=== PATIENT | female | born 1960 | race Caucasian/White ===

== ENCOUNTER 2017-09-27 10:25 | Emergency (ER) | payer SELFPAY ==
[2017-09-27] MEDS ORDERED: HYDROCODONE/ACETAMINOPHEN 5-325 MG TABLET PO ONE (13:57)
[2017-09-27] MEDS ORDERED: IBUPROFEN 800 MG TABLET PO ONE (13:57)
--- NOTE | 2017-09-27 13:57 | ER Document Report ---
ED General - General Chief Complaint: Urinary Problem Stated Complaint: VAGINAL BLEEDING Time Seen by Provider: 09/27/17 13:45 Notes: This is a 57-year-old female patient presents emergency department with hematuria. States that she has a history of uterine fibroids. Every now and then she notices some blood in her urine. Also complains of pain in her left trapezius and left chest. Radiates to her back at times. Patient states that it is very tender to palpation in the neck muscles and shoulder as well as chest muscles. States that the symptoms have been present for "several months" . States that she sleeps in the bathtub because it helps. When she lays down on the left shoulder it hurts. 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 IN LAST 30 DAYS: No - HPI Onset/Duration: Gradual, Persistent Quality of pain: Achy Severity: Moderate Pain Level: 3 Associated symptoms: None - Related Data Allergies/Adverse Reactions: strawberry [[place]] Allergy (Verified 09/27/17 10:35) Past Medical History - General Information source: Patient - Social History Smoking Status: Former Smoker Cigarette use (# per day): Yes Smoking Education Provided: No Frequency of alcohol use: None Drug Abuse: None Lives with: Family Family History: Reviewed & Not Pertinent - Past Medical History Cardiac Medical History: Reports: Hx Hypertension Neurological Medical History: Reports: Hx Migraine Musculoskeltal Medical History: Reports Hx Arthritis Psychiatric Medical History: Reports: Hx Depression Traumatic Medical History: Reports: Hx Fractures - Fingers and toes Past Surgical History: Reports: Hx Orthopedic Surgery - "neck surgery", Hx Tubal Ligation - Immunizations Immunizations up to date: Yes Hx Diphtheria, Pertussis, Tetanus Vaccination: No Review of Systems - Review of Systems Constitutional: denies: Chills, Diaphoresis, Fever, Malaise, Weakness EENT: denies: Eye discharge, Blurred vision, Tearing, Double vision, Nose congestion, Nose discharge, Mouth swelling Cardiovascular: denies: Chest pain, Palpitations, Heart racing, Dyspnea, Syncope , Dizziness, Lightheaded Gastrointestinal: denies: Abdominal pain, Diarrhea, Nausea, Constipation, Black stools Genitourinary: Hematuria. denies: Burning, Dysuria, Discharge, Incontinence Female Genitourinary: Vaginal bleeding. denies: Vaginal discharge, Vaginal odor , Painful intercourse Musculoskeletal: Back pain, Joint pain, Muscle pain, Muscle stiffness Hematologic/Lymphatic: denies: Anemia, Blood clots, Easy bleeding, Easy bruising Neurological/Psychological: denies: Depression, Anxiety, Hallucinations Physical Exam - Vital signs Vitals: Temp Pulse Resp BP Pulse Ox 97.6 F 84 20 201/99 H 95 09/27/17 10:40 09/27/17 10:40 09/27/17 10:40 09/27/17 10:40 09/27/17 10:40 Interpretation: Normal - General General appearance: Appears well, Alert - HEENT Head: Normocephalic, Atraumatic Eyes: Normal Pupils: PERRL - Respiratory Respiratory status: No respiratory distress Chest status: Nontender Breath sounds: Normal Chest palpation: Normal - Cardiovascular Rhythm: Regular - She has clearly reproducible left anterior and lateral chest wall pain with light touch. Over exaggerated. Heart sounds: Normal auscultation Murmur: No - Abdominal Inspection: Normal Distension: No distension Bowel sounds: Normal Tenderness: Nontender Organomegaly: No organomegaly - Back Back: Normal, Nontender - Extremities General upper extremity: Normal inspection, Normal color, Normal ROM, Normal temperature, Other - Patient has tenderness to palpation in the left trapezius muscle as well as left scapular muscles. There is no obvious lymphadenopathy in the left axilla. General lower extremity: Normal inspection, Nontender, Normal color, Normal ROM , Normal temperature, Normal weight bearing. No: Luda's sign - Neurological Neuro grossly intact: Yes Cognition: Normal Orientation: AAOx4 [place] Coma Scale Eye Opening: Spontaneous [place] Coma Scale Verbal: Oriented [place] Coma Scale Motor: Obeys Commands [place] Coma Scale Total: 15 Speech: Normal Motor strength normal: LUE, RUE, LLE, RLE Sensory: Normal - Psychological Associated symptoms: Normal affect, Normal mood - Skin Skin Temperature: Warm - Left lateral breast examined. No obvious breast masses. No changes to the skin noted. No obvious lymphadenopathy. Skin Moisture: Dry Skin Color: Normal Course - Re-evaluation Re-evalutation: 09/27/17 14:34 Is a well-appearing 57-year-old female in no acute distress with chronic complaints. Has a history of uterine fibroids. Will need to be followed up with [employer]. Has some left clearly reproducible musculoskeletal pain on the left scapula and left shoulder area. Do not feel this represents cardiac event. We will give her some anti-inflammatory and pain medication and recommend close follow-up. 09/27/17 14:49 Chest X-Ray 09/27/17 13:56 IMPRESSION: No acute changes - Vital Signs Vital signs: Temp Pulse Resp BP Pulse Ox 97.6 F 84 20 201/99 H 95 09/27/17 10:40 09/27/17 10:40 09/27/17 10:40 09/27/17 10:40 09/27/17 10:40 - Laboratory Laboratory results interpreted by me: 09/27/17 10:38 Urine Blood MODERATE H - EKG Interpretation by Co EKG shows normal: Sinus rhythm, Kulm, Intervals, QRS Complexes, ST-T Waves Discharge - Discharge Clinical Impression: Uterine fibroid Qualifiers: Uterine leiomyoma location: unspecified location Qualified Code(s): D25.9 - Leiomyoma of uterus, unspecified Left shoulder pain Qualifiers: Chronicity: chronic Qualified Code(s): M25.512 - Pain in left shoulder Instructions: Hematuria ([facility]), Shoulder Injury ([facility]) Prescriptions: Hydrocodone/Acetaminophen [[place] 5-325 Tablet] 1 each PO TID PRN 4 Days #12 tablet PRN Reason: Ibuprofen [Motrin 600 Mg Tablet] 600 mg PO TID 5 Days #15 tablet Referrals: [facility] [Provider Group] - Follow up in 3-5 days MARTIN SHAHID MD [ACTIVE STAFF] - Follow up in 1 week
[2017-09-27 14:31] LABS: APPEARANCE,URINE CLEAR; BILIRUBIN,URINE NEGATIVE (NEGATIVE); COLOR,URINE STRAW; GLUCOSE, URINE NEGATIVE (NEGATIVE); KETONES,URINE NEGATIVE (NEGATIVE); LEUKOCYTE ESTERASE,URINE NEGATIVE (NEGATIVE); NITRITE,URINE NEGATIVE (NEGATIVE); PROTEIN,URINE NEGATIVE (NEGATIVE); URINE SPECIFIC GRAVITY 1.006; UROBILINOGEN,URINE NEGATIVE mg/dL (<2.0)
--- NOTE | 2017-09-27 14:42 | RADIOLOGY REPORT (SQ) ---
EXAM DESCRIPTION: CHEST PA/LAT COMPLETED DATE/TIME: 09/27/2017 2:32 pm REASON FOR STUDY: CHEST PAIN COMPARISON: Two-view chest 09/02/2013, 07/30/2011 EXAM PARAMETERS: NUMBER OF VIEWS: two views TECHNIQUE: Digital Frontal and Lateral radiographic views of the chest acquired. RADIATION DOSE: NA LIMITATIONS: none FINDINGS: LUNGS AND PLEURA: No opacities, masses or pneumothorax. No pleural effusion. MEDIASTINUM AND HILAR STRUCTURES: No masses or contour abnormalities. HEART AND VASCULAR STRUCTURES: Heart normal size. No evidence for failure. BONES: No acute findings. Convex rightward upper thoracic and convex leftward lower thoracic curvatu re. HARDWARE: None in the chest. OTHER: No other significant finding. IMPRESSION: No acute changes TECHNICAL DOCUMENTATION: JOB ID: [id number] [employer]- All Rights Reserved
[2017-09-27 15:31] LABS: ABSOLUTE BASOPHILS # (AUTO) 0.1 10^3/uL (0.0-0.2); ABSOLUTE EOSINOPHILS # (AUTO) 0.2 10^3/uL (0.0-0.6); ABSOLUTE LYMPHOCYTES (AUTO) 2.8 10^3/uL (0.5-4.7); ABSOLUTE MONOCYTES (AUTO) 0.4 10^3/uL (0.1-1.4); ABSOLUTE NEUT (AUTO) 5.3 10^3/uL (1.7-8.2); BASOPHILS % (AUTO) 1.1 % (0-2); EOSINOPHILS % (AUTO) 1.8 % (0-6); HEMATOCRIT 46.8 % (36.0-47.0); HEMOGLOBIN 16.4 g/dL (12.0-15.5); LYMPHOCYTES % (AUTO) 31.9 % (13-45); MEAN CORPUSCULAR HEMOGLOBIN 31.9 pg (27.0-33.4); MEAN CORPUSCULAR HGB CONC 35.1 g/dL (32.0-36.0); MEAN CORPUSCULAR VOLUME 91 fl (80-97); PLATELET COUNT 228 10^3/uL (150-450); RED BLOOD COUNT 5.15 10^6/uL (3.72-5.28); RED CELL DISTRIBUTION WIDTH 12.8 % (11.5-14.0); SEGMENTED NEUTROPHILS % (AUTO) 60.2 % (42-78); TOTAL CELLS COUNTED % (AUTO) 100 %; WHITE BLOOD COUNT 8.9 10^3/uL (4.0-10.5)
[2017-09-27 15:43] LABS: ALANINE AMINOTRANSFERASE 40 U/L (9-52); ALBUMIN 4.4 g/dL (3.5-5.0); ALKALINE PHOSPHATASE 67 U/L (38-126); ANION GAP 7 (5-19); ASPARTATE AMINO TRANSFERASE 37 U/L (14-36); BILIRUBIN,DIRECT 0.3 mg/dL (0.0-0.4); BILIRUBIN,TOTAL 0.7 mg/dL (0.2-1.3); BLOOD UREA NITROGEN 11 mg/dL (7-20); CALCIUM 9.2 mg/dL (8.4-10.2); CARBON DIOXIDE 26 mmol/L (22-30); CHLORIDE 108 mmol/L (98-107); GLUCOSE 109 mg/dL (75-110); SALICYLATE 1.4 mg/dL (2.0-20.0); SODIUM 141.1 mmol/L (137-145); TOTAL PROTEIN 7.2 g/dL (6.3-8.2)
[2017-09-27 15:45] LABS: ACETAMINOPHEN < 10 ug/mL (10-30)
[2017-09-27 17:31] VITALS: BP 181/91
--- NOTE | 2017-09-27 19:04 | EKG REPORT ---
SEVERITY:- NORMAL ECG - SINUS RHYTHM : Confirmed by: Omero Mcmahan MD 27-Sep-2017 19:04:15
== END 2017-09-27 17:32 | disposition home or self-care (01) ==
LOC: ER 10:25
DX: D25.9 Leiomyoma of uterus, unspecified (principal); M25.512 Pain in left shoulder; R39.198 Other difficulties with micturition; R31.9 Hematuria, unspecified; Z87.891 Personal history of nicotine dependence
CPT/HCPCS: 36415; 71046; 80053; 80307; 81001; 85025; 87086; 93005; 93010; 99284

== ENCOUNTER 2018-01-20 11:35 | Emergency (ER) | payer SELFPAY ==
--- NOTE | 2018-01-20 12:03 | ER Document Report ---
ED Medical Screen (RME) - General Chief Complaint: Pain With Urination Stated Complaint: URINE PROBLEMS Time Seen by Provider: 01/20/18 11:49 Mode of Arrival: Ambulatory Information source: Patient Notes: 58-year-old female presents with complaints of hematuria. Patient notes that she has been having spotting in her urine for months has been seen multiple times here, has been unable to follow-up with specialist due to financial reasons. Today she noted large amount of blood clots Patient is noted to be hypertensive is not on any medications I have greeted and performed a rapid initial assessment of this patient. A comprehensive ED assessment and evaluation of the patient, analysis of test results and completion of the medical decision making process will be conducted by additional ED providers. PHYSICAL EXAMINATION: GENERAL: Well-appearing, well-nourished and in no acute distress. HEAD: Atraumatic, normocephalic. EYES: Pupils equal round extraocular movements intact, conjunctiva are normal. ENT: Nares patent NECK: Normal range of motion LUNGS: No respiratory distress Musculoskeletal: Normal range of motion NEUROLOGICAL: Normal speech, normal gait. PSYCH: Normal mood, normal affect. SKIN: Warm, Dry, normal turgor, no rashes or lesions noted. TRAVEL OUTSIDE OF THE [place] IN LAST 30 DAYS: No - Related Data Allergies/Adverse Reactions: strawberry [[place]] Allergy (Verified 09/27/17 10:35) Past Medical History - Social History Chew tobacco use (# tins/day): No Frequency of alcohol use: None Drug Abuse: None - Past Medical History Cardiac Medical History: Reports: Hx Hypertension Neurological Medical History: Reports: Hx Migraine Renal/ Medical History: Denies: Hx Peritoneal Dialysis Musculoskeltal Medical History: Reports Hx Arthritis Psychiatric Medical History: Reports: Hx Depression Traumatic Medical History: Reports: Hx Fractures - Fingers and toes Past Surgical History: Reports: Hx Orthopedic Surgery - "neck surgery", Hx Tubal Ligation - Immunizations Immunizations up to date: Yes Hx Diphtheria, Pertussis, Tetanus Vaccination: No Physical Exam - Vital signs Vitals: Temp Pulse Resp BP Pulse Ox 97.6 F 76 14 194/104 H 96 01/20/18 11:41 01/20/18 11:41 01/20/18 11:41 01/20/18 11:41 01/20/18 11:41 Course - Vital Signs Vital signs: Temp Pulse Resp BP Pulse Ox 97.6 F 76 14 194/104 H 96 01/20/18 11:41 01/20/18 11:41 01/20/18 11:41 01/20/18 11:41 01/20/18 11:41
--- NOTE | 2018-01-20 12:40 | RADIOLOGY REPORT (SQ) ---
EXAM DESCRIPTION: CT LTD RENAL STONE PROTOCOL ON COMPLETED DATE/TIME: 01/20/2018 12:28 pm REASON FOR STUDY: hematuria for months COMPARISON: None. TECHNIQUE: CT scan of the abdomen and pelvis performed without intravenous or oral contrast. Images reviewed with lung, soft tissue, and bone windows. Reconstructed coronal and sagittal MPR images revi ewed. All images stored on PACS. All CT scanners at this facility use dose modulation, iterative reconstruction, and/or weight based d osing when appropriate to reduce radiation dose to as low as reasonably achievable (ALARA). [facility]: Dose Right [facility]: CareDose [facility]: Dose Right [facility]: Teradose 4D [facility]: Smart US PREVENTIVE MEDICINE RADIATION DOSE: CT Rad equipment meets quality standard of care and radiation dose reduction techniq ues were employed. CTDIvol: 14.3 mGy. DLP: 771 mGy-cm.mGy. LIMITATIONS: None. FINDINGS: LOWER CHEST: No significant findings. No nodules or infiltrates. NON-CONTRASTED LIVER, SPLEEN, ADRENALS: Evaluation limited by lack of IV contrast. No identified sign ificant masses. PANCREAS: No masses. No peripancreatic inflammatory changes. GALLBLADDER: No identified stones by CT criteria. No inflammatory changes to suggest cholecystitis. RIGHT KIDNEY AND URETER: No suspicious masses. Assessment limited by lack of IV contrast. A 2 mm ca lcification is present along the right upper pole kidney, vascular calcification versus tiny stone be st shown on coronal image 45. No hydronephrosis or hydroureter. LEFT KIDNEY AND URETER: No suspicious masses. Assessment limited by lack of IV contrast. No signifi cant calcifications. No hydronephrosis or hydroureter. AORTA AND RETROPERITONEUM: No aneurysm. No retroperitoneal masses or adenopathy. BOWEL AND PERITONEAL CAVITY: No obvious masses or inflammatory changes. No free fluid. No bowel obst ruction. No free intraperitoneal air. APPENDIX: Normal. Best shown on coronal image 34 PELVIS, BLADDER, AND ABDOMINAL WALL:Enlarged fibroid uterus 14 x 12 x 10 cm in size. No free fluid. B ladder normal. BONES: Mild degenerative changes in the lower thoracic spine OTHER: No other significant finding. IMPRESSION: Tiny calcification right upper pole kidney, vascular calcification versus tiny intrarena l nonobstructive stone. Enlarged fibroid uterus COMMENT: Quality ID # [id number]: Final reports with documentation of one or more dose reduction techniques (e.g., Automated exposure control, adjustment of the mA and/or kV according to patient size, use of iterative reconstruction technique) TECHNICAL DOCUMENTATION: JOB ID: [id number] [employer]- All Rights Reserved Reading location - IP/workstation name: [email or web address]
[2018-01-20 12:49] LABS: ABSOLUTE EOSINOPHILS # (AUTO) 0.3 10^3/uL (0.0-0.6); ABSOLUTE LYMPHOCYTES (AUTO) 3.2 10^3/uL (0.5-4.7); ABSOLUTE MONOCYTES (AUTO) 0.6 10^3/uL (0.1-1.4); ABSOLUTE NEUT (AUTO) 5.7 10^3/uL (1.7-8.2); BASOPHILS % (AUTO) 0.5 % (0-2); EOSINOPHILS % (AUTO) 3.1 % (0-6); HEMATOCRIT 49.5 % (36.0-47.0); HEMOGLOBIN 17.2 g/dL (12.0-15.5); LYMPHOCYTES % (AUTO) 32.8 % (13-45); MEAN CORPUSCULAR HEMOGLOBIN 31.7 pg (27.0-33.4); MEAN CORPUSCULAR HGB CONC 34.8 g/dL (32.0-36.0); MEAN CORPUSCULAR VOLUME 91 fl (80-97); PLATELET COUNT 267 10^3/uL (150-450); RED BLOOD COUNT 5.43 10^6/uL (3.72-5.28); RED CELL DISTRIBUTION WIDTH 13.1 % (11.5-14.0); SEGMENTED NEUTROPHILS % (AUTO) 57.6 % (42-78); TOTAL CELLS COUNTED % (AUTO) 100 %; WHITE BLOOD COUNT 9.8 10^3/uL (4.0-10.5)
[2018-01-20 12:54] LABS: APPEARANCE,URINE SLIGHTLY-CLOUDY; BILIRUBIN,URINE NEGATIVE (NEGATIVE); COLOR,URINE RED; GLUCOSE, URINE NEGATIVE (NEGATIVE); KETONES,URINE NEGATIVE (NEGATIVE); LEUKOCYTE ESTERASE,URINE NEGATIVE (NEGATIVE); NITRITE,URINE NEGATIVE (NEGATIVE); PROTEIN,URINE 30 mg/dL (NEGATIVE); URINE SPECIFIC GRAVITY 1.008; UROBILINOGEN,URINE NEGATIVE mg/dL (<2.0)
[2018-01-20 13:08] LABS: ALANINE AMINOTRANSFERASE 38 U/L (9-52); ALBUMIN 4.7 g/dL (3.5-5.0); ALKALINE PHOSPHATASE 59 U/L (38-126); ANION GAP 13 (5-19); ASPARTATE AMINO TRANSFERASE 28 U/L (14-36); BILIRUBIN,DIRECT 0.3 mg/dL (0.0-0.4); BILIRUBIN,TOTAL 0.4 mg/dL (0.2-1.3); BLOOD UREA NITROGEN 12 mg/dL (7-20); CALCIUM 10.8 mg/dL (8.4-10.2); CARBON DIOXIDE 27 mmol/L (22-30); CHLORIDE 105 mmol/L (98-107); GLUCOSE 97 mg/dL (75-110); POTASSIUM 4.2 mmol/L (3.6-5.0); SODIUM 144.6 mmol/L (137-145); TOTAL PROTEIN 7.5 g/dL (6.3-8.2)
--- NOTE | 2018-01-20 15:34 | ER Document Report ---
ED GI/ - General Chief Complaint: Pain With Urination Stated Complaint: URINE PROBLEMS Time Seen by Provider: 01/20/18 11:49 Mode of Arrival: Ambulatory Notes: Patient says that she is passing blood in her urine for the past few weeks. Is become heavier today and she is passing clots. Patient says that she went through the menopause change about 6 years ago but continued to have some spotting at times throughout the 6 years. In the recent months, she is actually passing gross blood and occasionally some clots. She also notes blood on the tissue paper when she wipes after urinating. She has some lower suprapubic discomfort. Has not been noted to have any fever. She has had some sweats at times. Has had nausea but not vomiting. No diarrhea. TRAVEL OUTSIDE OF THE [place] IN LAST 30 DAYS: No - Related Data Allergies/Adverse Reactions: strawberry [[place]] Allergy (Verified 09/27/17 10:35) Past Medical History - General Information source: Patient - Social History Smoking Status: Current Every Day Smoker Chew tobacco use (# tins/day): No Frequency of alcohol use: None Drug Abuse: None Family History: Reviewed & Not Pertinent Patient has suicidal ideation: No Patient has homicidal ideation: No - Past Medical History Cardiac Medical History: Reports: Hx Hypertension - On no medications for any medical problems at this time. Neurological Medical History: Reports: Hx Migraine Endocrine Medical History: Denies: Hx Diabetes Mellitus Type 1, Hx Diabetes Mellitus Type 2 Musculoskeltal Medical History: Reports Hx Arthritis Psychiatric Medical History: Reports: Hx Depression Traumatic Medical History: Reports: Hx Fractures - Fingers and toes Past Surgical History: Reports: Hx Orthopedic Surgery - "neck surgery", Hx Tubal Ligation - Immunizations Immunizations up to date: Yes Hx Diphtheria, Pertussis, Tetanus Vaccination: No Review of Systems - Review of Systems Notes: REVIEW OF SYSTEMS: CONSTITUTIONAL : Denies fever. EENT: Denies eye, ear, nose or mouth or throat pain or other symptoms. CARDIOVASCULAR: Denies chest pain. RESPIRATORY: Denies cough, chest congestion, or shortness of breath. GASTROINTESTINAL: Denies abdominal pain, has some nausea but not vomiting. No diarrhea. GENITOURINARY: See HPI. MUSCULOSKELETAL: Denies back or neck pain. Denies joint pain or swelling. SKIN: Denies rash or skin lesions. NEUROLOGICAL: Denies LOC or altered mental status. Denies headache. Denies sensory loss or motor deficits. ALL OTHER SYSTEMS REVIEWED AND NEGATIVE. Physical Exam - Vital signs Vitals: Temp Pulse Resp BP Pulse Ox 97.6 F 76 14 194/104 H 96 01/20/18 11:41 01/20/18 11:41 01/20/18 11:41 01/20/18 11:41 01/20/18 11:41 Interpretation: Hypertensive - Notes Notes: PHYSICAL EXAMINATION: GENERAL: Well-appearing, in no acute distress. HEAD: Atraumatic, normocephalic. EYES: Pupils equal round and reactive to light, extraocular movements intact. ENT: oropharynx clear without exudates. Moist mucous membranes. NECK: Normal range of motion, supple. LUNGS: Breath sounds clear and equal bilaterally. HEART: Regular rate and rhythm without murmurs. ABDOMEN: Soft, nontender. No guarding or rebound. No masses. BACK: No tenderness throughout entire back. EXTREMITIES: Normal range of motion without pain. NEUROLOGICAL: Normal speech, normal gait. Normal sensory, motor, and reflex exams. Awake, alert, and oriented x3. Cranial nerves normal. PSYCH: Normal mood, normal affect. SKIN: Warm, dry, no rashes. - Genitourinary External exam: No: Lesions, Laceration Speculum exam: Cervix closed Vaginal bleeding: Mild - Minimal bleeding intravaginally. But there is definite blood there on the swabs. Bimanuel exam: Uterus enlarged - Moderately large firm mass in the midline and slightly to the right of midline of the pelvis. Course - Re-evaluation Re-evalutation: 01/20/18 19:49 Patient's hemoglobin is elevated and will to the patient and the need for her to stop smoking because of the unnecessary strain being applied to the patient' s heart from her elevated red cell count. Patient certainly does not need to be concerned about bleeding excessively from the fibroid. Spoke with Dr. Peralta, production manager BAG WORKER, and she said to refer the patient to her office for a follow-up Tuesday. 01/20/18 19:51 Patient's blood pressure was up so I started her on lisinopril with the advised that she follow-up - Vital Signs Vital signs: Temp Pulse Resp BP Pulse Ox 97.5 F 62 14 184/83 H 97 01/20/18 15:49 01/20/18 15:49 01/20/18 11:41 01/20/18 15:49 01/20/18 15:49 - Laboratory Result Diagrams: 01/20/18 12:05 01/20/18 12:05 Laboratory results interpreted by me: 01/20/18 01/20/18 01/20/18 12:05 12:05 12:05 RBC 5.43 H Hgb 17.2 H Hct 49.5 H Calcium 10.8 H Urine Protein 30 H Urine Blood LARGE H - Diagnostic Test Radiology reviewed: Image reviewed - Moderately large fibroid in the uterus that corresponds to the mass on my physical examination., Reports reviewed Discharge - Discharge Clinical Impression: Vaginal bleeding, Hypertension Disposition: HOME, SELF-CARE Additional Instructions: VAGINAL BLEEDING: You are having an episode of abnormal bleeding. Causes of abnormal vaginal bleeding can include miscarriage or tubal , tumors such as cancer or benign fibroids, medication effects, or hormone imbalance. Testing can eliminate unsuspected , tumors, or infection as a cause. "Dysfunctional uterine bleeding" is due to hormone imbalance, and is especially common at times when the normal cycle is disturbed -- whether by recent , use of control pills or hormones, or impending menopause. If the bleeding is innocent, most commonly a short course of hormones is given to restore the uterus to normal. Sometimes, the normal menstrual cycle corrects itself naturally. Sometimes , brief hormone therapy, or even a D&C is required. Your physician will advise you. Treatment for anemia may be required if bleeding is severe. You should rest and avoid intercourse until the bleeding is controlled. Call the doctor or return for re-examination if you feel faint, have increasing pain, or have a major increase in the amount of bleeding. FIBROIDS: Fibroids are benign growths or tumors in the uterus. They can cause enlargement of the uterus, irregular bleeding, severe bleeding with periods, and abdominal pain. Anemia may result if periods are heavy. Fibroids tend to grow until menopause, then slowly shrink. If fibroids cause severe symptoms, they can be treated surgically. Call or return if vaginal bleeding or pain becomes severe. HIGH BLOOD PRESSURE, NOT TREAT: When your blood pressure was taken today it was elevated. Today's reading was . We do not think you need to have your blood pressure treated today. Sometimes, stress or illness causes a temporary elevation of your blood pressure. We suggest that you get your blood pressure measured again during the next few days to see if this elevated blood pressure is more than a temporary abnormality. If your blood pressure is greater than 150/90 on each occasion, you must have treatment. Some simple things you can do to help are: If you have blood pressure medicine but aren't using it regularly, start taking it again. Get some aerobic exercise for at least 20 minutes on a daily basis. (See your doctor before beginning a new exercise program.) Eat a low-fat diet. Lose excess weight. Avoid salty foods and avoid adding salt to any of the foods you eat. Avoid diet pills, decongestants, "energizing" herbs, and other medicines that elevate blood pressure. If left untreated, hypertension greatly enhances your risk for developing heart disease and strokes. Please don't ignore this problem. HIGH BLOOD PRESSURE REQUIRING TREATMENT: Your blood pressure is high. This is called "hypertension." Today's reading was 194/104 (normal is less than 140/90). Your history and exam suggest that this is not a temporary problem. You need treatment of your blood pressure. If left untreated, high blood pressure greatly increases your risk of heart attack and stroke. Please don't ignore this problem. If you have blood pressure medicine but aren't using it regularly, start taking it again. Some simple things you can do to help are: Get some aerobic exercise for at least 20 minutes on a daily basis. (See your doctor before beginning any new exercise program.) Eat a low-fat diet. Lose excess weight. Avoid salty foods and avoid adding salt to any of the foods you eat. Avoid diet pills, decongestants, "energizing" herbs, and other medicines that elevate blood pressure. There are many different medicines that treat blood pressure. If your medication causes unpleasant side effects, call your doctor. There are others you can try. Treating hypertension is a life-long investment in your health. You have been given a blood pressure medication that is a combination of an VIOLETTA inhibitor and a fluid pill called hydrochlorothiazide. HYDROCHLOROTHIAZIDE: Hydrochlorothiazide is a diuretic medication. Diuretics are often called "water pills." The medicine flushes excess salt and water from the body. Diuretics are used for fluid retention (such as heart failure, cirrhosis, or lung disease) and for blood pressure control. Often hydrochlorothiazide is combined with other medicines in the same pill. Most patients prefer to take the medicine in the morning. Hydrochlorothiazide makes extra urine, which can be a problem if you take the pill at night. Diuretics make you lose potassium. Sometimes a good diet with plenty of fruit is enough to replace it. Sometimes a potassium supplement is necessary. Or, hydrochlorothiazide may be combined with medicines that prevent potassium loss. We usually recommend a blood potassium test in a few weeks. Contact your doctor if you develop extreme fatigue, muscle weakness, lethargy, confusion, or palpitations. ANGIOTENSIN CONVERTING ENZYME INHIBITOR MEDICATION: "VIOLETTA inhibitor" drugs are used to lower high blood pressure (or to reduce the "work" of the heart in patients with heart failure). These drugs block an enzyme that makes your blood vessels constrict and makes you retain salt. The result is lower blood pressure. VIOLETTA inhibitors cause few side effects. The most common side effect is a dry nagging cough. Occasionally, lightheadedness may occur while you get used to the medicine. Some patients may retain extra potassium (this is a problem if you are taking potassium supplements, potassium-containing salt substitutes, or a potassium-retaining drug such as triamterene, spironolactone, or amiloride) . If you are taking lithium, the lithium level must be rechecked after starting an VIOLETTA inhibitor. VIOLETTA inhibitors should NOT be used during . Contact the doctor or return if you develop severe lightheadedness, wheeze , weakness, palpitations or other new symptoms. FOLLOW-UP CARE: If you have been referred to a physician for follow-up care, call the physician s office for an appointment as you were instructed or within the next two days. If you experience worsening or a significant change in your symptoms (very heavy bleeding with large clots of blood, passage of tissue, more severe abdominal / pelvic pain or cramping, feeling faint or severe weakness, fever, etc.), notify the physician immediately or return to the Emergency Department at any time for re-evaluation. OBSTETRIC-GYNECOLOGIC (OB-CHROME PLATER HELPER) PHYSICIANS IN [place]: [facility] [address] [place] [address] [phone] Prescriptions: Lisinopril/Hydrochlorothiazide [Lisinopril-Hctz 10-12.5 mg Tab] 1 each PO DAILY #30 tablet Referrals: LOCALMD,NO [Primary Care Provider] - Follow up as needed CHATO PERALTA MD [ACTIVE STAFF] - Follow up in 3-5 days
[2018-01-20 15:51] VITALS: BP 184/83
== END 2018-01-20 15:55 | disposition home or self-care (01) ==
LOC: ER 11:35
DX: N93.8 Other specified abnormal uterine and vaginal bleeding (principal); I10 Essential (primary) hypertension; R31.9 Hematuria, unspecified; F17.200 Nicotine dependence, unspecified, uncomplicated; Z78.0 Asymptomatic menopausal state
CPT/HCPCS: 36415; 76380; 80053; 81001; 85025; 87086; 99284

== ENCOUNTER 2018-12-05 18:51 | Emergency (ER) | payer SELFPAY ==
--- NOTE | 2018-12-05 20:49 | ER Document Report ---
ED Medical Screen (RME) - General Chief Complaint: Vaginal Bleeding Stated Complaint: LOW BACK PAIN, ABDOMINAL PAIN Time Seen by Provider: 12/05/18 20:33 Notes: Patient presents to triage with a chief complaint of vaginal bleeding for 1 year, she does report having a history of a uterine fibroid, patient reports that she goes through about 6 depends per day due to blood clots and incontinence of urine. Patient also complains of low back pain that started today, besides incontinence of urine at times patient denies any other urinary symptoms. TRAVEL OUTSIDE OF THE [place] IN LAST 30 DAYS: No - Related Data Allergies/Adverse Reactions: strawberry [[place]] Allergy (Verified 09/27/17 10:35) Past Medical History - Social History Chew tobacco use (# tins/day): No Frequency of alcohol use: Occasional Drug Abuse: None - Past Medical History Cardiac Medical History: Reports: Hx Hypertension - On no medications for any medical problems at this time. Neurological Medical History: Reports: Hx Migraine Endocrine Medical History: Denies: Hx Diabetes Mellitus Type 1, Hx Diabetes Mellitus Type 2 Renal/ Medical History: Denies: Hx Peritoneal Dialysis Musculoskeltal Medical History: Reports Hx Arthritis Psychiatric Medical History: Reports: Hx Depression Traumatic Medical History: Reports: Hx Fractures - Fingers and toes Past Surgical History: Reports: Hx Orthopedic Surgery - "neck surgery", Hx Tubal Ligation - Immunizations Immunizations up to date: Yes Hx Diphtheria, Pertussis, Tetanus Vaccination: No Physical Exam - Vital signs Vitals: Temp Pulse Resp BP Pulse Ox 98.1 F 76 18 161/101 H 98 12/05/18 19:51 12/05/18 19:51 12/05/18 19:51 12/05/18 19:51 12/05/18 19:51 - Abdominal Inspection: Normal Distension: No distension Bowel sounds: Normal Tenderness: Tender - Tenderness noted throughout lower abdomen worse on right lower quadrant. Organomegaly: No organomegaly Course - Re-evaluation Re-evalutation: 12/05/18 20:50 I have greeted and performed a rapid initial assessment of this patient. A comprehensive ED assessment and evaluation of the patient, analysis of test results and completion of the medical decision making process will be conducted by additional ED providers. - Vital Signs Vital signs: Temp Pulse Resp BP Pulse Ox 98.1 F 76 18 161/101 H 98 12/05/18 19:51 12/05/18 19:51 12/05/18 19:51 12/05/18 19:51 12/05/18 19:51
[2018-12-05 21:43] LABS: AMORPHOUS SEDIMENT,URINE TRACE /HPF; APPEARANCE,URINE CLOUDY; BILIRUBIN,URINE NEGATIVE (NEGATIVE); COLOR,URINE YELLOW; GLUCOSE, URINE NEGATIVE (NEGATIVE); KETONES,URINE NEGATIVE (NEGATIVE); LEUKOCYTE ESTERASE,URINE NEGATIVE (NEGATIVE); NITRITE,URINE NEGATIVE (NEGATIVE); PROTEIN,URINE NEGATIVE (NEGATIVE); URINE SPECIFIC GRAVITY 1.014; UROBILINOGEN,URINE NEGATIVE mg/dL (<2.0)
[2018-12-05 21:44] LABS: ABSOLUTE EOSINOPHILS # (AUTO) 0.3 10^3/uL (0.0-0.6); ABSOLUTE MONOCYTES (AUTO) 0.6 10^3/uL (0.1-1.4); ABSOLUTE NEUT (AUTO) 4.7 10^3/uL (1.7-8.2); BASOPHILS % (AUTO) 0.3 % (0-2); EOSINOPHILS % (AUTO) 2.9 % (0-6); HEMATOCRIT 44.7 % (36.0-47.0); LYMPHOCYTES % (AUTO) 35.1 % (13-45); MEAN CORPUSCULAR HEMOGLOBIN 32.9 pg (27.0-33.4); MEAN CORPUSCULAR HGB CONC 35.8 g/dL (32.0-36.0); MEAN CORPUSCULAR VOLUME 92 fl (80-97); PLATELET COUNT 239 10^3/uL (150-450); RED BLOOD COUNT 4.87 10^6/uL (3.72-5.28); SEGMENTED NEUTROPHILS % (AUTO) 54.7 % (42-78); TOTAL CELLS COUNTED % (AUTO) 100 %; WHITE BLOOD COUNT 8.5 10^3/uL (4.0-10.5)
[2018-12-05 21:58] LABS: ALANINE AMINOTRANSFERASE 24 U/L (9-52); ALBUMIN 4.1 g/dL (3.5-5.0); ALKALINE PHOSPHATASE 59 U/L (38-126); ANION GAP 7 (5-19); ASPARTATE AMINO TRANSFERASE 20 U/L (14-36); BILIRUBIN,DIRECT 0.3 mg/dL (0.0-0.4); BILIRUBIN,TOTAL 0.4 mg/dL (0.2-1.3); BLOOD UREA NITROGEN 18 mg/dL (7-20); CALCIUM 10.5 mg/dL (8.4-10.2); CARBON DIOXIDE 27 mmol/L (22-30); CHLORIDE 106 mmol/L (98-107); GLUCOSE 121 mg/dL (75-110); POTASSIUM 4.2 mmol/L (3.6-5.0); SODIUM 140.4 mmol/L (137-145); TOTAL PROTEIN 7.1 g/dL (6.3-8.2)
--- NOTE | 2018-12-05 23:31 | RADIOLOGY REPORT (SQ) ---
EXAM DESCRIPTION: US TRANSVAGINAL COMPLETED DATE/TME: 12/05/2018 20:43 CLINICAL HISTORY: 58 years Female, heavy vaginal bleeding Comparison: 10/01/15. CT, January 20, 2018. Technique: Transvaginal. LIMITATIONS: None. FINDINGS: A 5.5 x 2.9 x 3.5 cm left ovary contains a 3.8 x 2.4 x 2.8 cm hypoechoic complex lesion/cyst. Left ovary is of normal vascularity. The 3.8 cm lesion of the left ovary does not demonstrate significant vascularity. 14 x 7 x 4 cm uterus with 12 x 11 x 11 cm posterior uterine wall fibroid with likely mass effect distorting the endometrial stripe. Right ovary is nonvisualized. No significant free fluid. IMPRESSION: 1. A 5.5 x 2.9 x 3.5 cm left ovary contains a 3.8 x 2.4 x 2.8 cm hypoechoic lesion/cyst. 2. A 14 x 7 x 4 cm fibroid uterus with distortion of the endometrial stripe. 3. Cannot exclude left ovarian or endometrial neoplasm. Advise BUNDLE PERSON surgical referral.
--- NOTE | 2018-12-06 02:04 | ER Document Report ---
ED GI/ - General Chief Complaint: Vaginal Bleeding Stated Complaint: LOW BACK PAIN, ABDOMINAL PAIN Time Seen by Provider: 12/06/18 02:03 Primary Care Provider: SHYLA HAMILTON MD [NO LOCAL MD] - Follow up as needed CHRIS STANFORD MD [Primary Care Provider] - Follow up as needed Mode of Arrival: Ambulatory Information source: Patient Notes: HISTORY OF PRESENT ILLNESS: Patient is a 58-year-old female with a past medical history of hypertension and uterine fibroid disease with dysfunctional uterine bleeding status post dilation/curettage who presents with recurrent uterine bleeding with pain and cramping in the lower pelvis. Patient reports that she has had similar symptoms ongoing for "years," reports she has been seen by multiple gynecologists and has even had a dilation with curettage with good results but now her symptoms have returned. Location: Pelvis Onset: 3 days ago Provocation: Unknown Quality: Cramping, bleeding Radiation: None Severity: Moderate Timing: Constant LMP: "I have been seen by 3 campus dean for uterine bleeding" Associated symptoms: No fevers or chills, no vaginal discharge, no injury REVIEW OF SYSTEMS: CONSTITUTIONAL : Denies fever or chills, no sweats. Denies recent illness. EENT: Denies eye, ear, throat, or mouth pain or symptoms. Denies nasal or sinus congestion. CARDIOVASCULAR: Denies chest pain. RESPIRATORY: Denies cough, cold, or chest congestion. Denies shortness of breath, difficulty breathing, or wheezing. GASTROINTESTINAL: Denies abdominal pain. Denies nausea, vomiting, or diarrhea. Denies constipation. GENITOURINARY: Denies difficulty urinating, painful urination, burning, frequency, or blood in urine. Positive for vaginal bleeding. MUSCULOSKELETAL: Denies neck or back pain or joint pain or swelling. SKIN: Denies rash or skin lesions. HEMATOLOGIC : Denies easy bruising or bleeding. LYMPHATIC: Denies swollen, enlarged glands. NEUROLOGICAL: Denies altered mental status or loss of consciousness. Denies headache. Denies weakness or paralysis or loss of use of either side. Denies problems with gait or speech. Denies sensory or motor loss. PSYCHIATRIC: Denies anxiety or stress or depression. All other systems reviewed and negative. PHYSICAL EXAMINATION: GENERAL: Well-appearing, well-nourished and in no acute distress. HEAD: Atraumatic, normocephalic. No scalp deformity, depression, or crepitance. EYES: Pupils are 3 mm and equal/round/reactive to light, extraocular movements intact, sclera anicteric, conjunctiva are normal. ENT: Nares patent bilaterally, oropharynx clear without exudates or palatal petechia. Moist mucous membranes. No tonsil hypertrophy. NECK: Normal range of motion, supple without lymphadenopathy. LUNGS: Breath sounds present, equal, and clear to auscultation bilaterally. No wheezes, rales, or rhonchi. HEART: Regular rate and rhythm without murmurs, rubs, or gallops. 2+ peripheral pulses. Normal capillary refill. ABDOMEN: Soft without distention, mild suprapubic and lower pelvis tenderness to palpation. Normoactive bowel sounds. No guarding, no rebound. No masses appreciated. BACK: Normal contour, no midline tenderness. Rectal exam deferred. PELVC: Deferred. EXTREMITIES: Normal range of motion, no pitting or edema. No cyanosis. NEUROLOGICAL: No focal neurological deficits. Moves all extremities spontaneously and on command. PSYCH: Normal mood, normal affect. No suicidal thoughts/ideations. No homicidal thoughts/ideations. No hallucinations. SKIN: Warm, dry, normal turgor, no rashes or lesions noted. ASSESSMENT AND PLAN: This patient is a 58-year-old female who presents with vaginal bleeding with cramping that is most likely related to her history of uterine fibroids. 1. Will obtain labs, urine, pelvic ultrasound, and reassess. 2. Will give IV Toradol and reassess. TRAVEL OUTSIDE OF THE [place] IN LAST 30 DAYS: No - Related Data Allergies/Adverse Reactions: strawberry [[place]] Allergy (Verified 09/27/17 10:35) Past Medical History - General Information source: Patient - Social History Smoking Status: Current Every Day Smoker Chew tobacco use (# tins/day): No Frequency of alcohol use: Occasional Drug Abuse: None Lives with: Family Family History: Reviewed & Not Pertinent Patient has suicidal ideation: No Patient has homicidal ideation: No - Past Medical History Cardiac Medical History: Reports: Hx Hypertension - On no medications for any medical problems at this time. Pulmonary Medical History: Reports: None EENT Medical History: Reports: None Neurological Medical History: Reports: Hx Migraine Endocrine Medical History: Reports: None. Denies: Hx Diabetes Mellitus Type 1, Hx Diabetes Mellitus Type 2 Renal/ Medical History: Reports: Hx Ovarian Cysts, Other - History of uterine fibroids status post dilation and curettage. Denies: Hx Peritoneal Dialysis Malignancy Medical History: Reports: None GI Medical History: Reports: None Musculoskeletal Medical History: Reports Hx Arthritis Skin Medical History: Reports None Psychiatric Medical History: Reports: Hx Depression Traumatic Medical History: Reports: Hx Fractures - Fingers and toes Infectious Medical History: Reports: None Past Surgical History: Reports: Hx Orthopedic Surgery - "neck surgery", Hx Tubal Ligation - Immunizations Immunizations up to date: Yes Hx Diphtheria, Pertussis, Tetanus Vaccination: No Physical Exam - Vital signs Vitals: Temp Pulse Resp BP Pulse Ox 98.1 F 76 18 161/101 H 98 12/05/18 19:51 12/05/18 19:51 12/05/18 19:51 12/05/18 19:51 12/05/18 19:51 Course - Re-evaluation Re-evalutation: 12/06/18 03:09 Ultrasound shows a left ovarian cyst as well as a mildly thickened or irregular endometrial stripe that could be secondary to neoplasm, recommends gynecology fo llow-up for likely biopsy. Patient reports she has already seen multiple gynecologists. She will be discharged home with return precautions and follow- up with gynecology/oncology. Patient voices both understanding and agreeing with the plan. - Vital Signs Vital signs: Temp Pulse Resp BP Pulse Ox 97.5 F 69 18 170/93 H 96 12/06/18 02:38 12/06/18 02:38 12/06/18 02:38 12/06/18 02:38 12/06/18 02:38 - Laboratory Result Diagrams: 12/05/18 21:13 12/05/18 21:13 Laboratory results interpreted by me: 12/05/18 12/05/18 12/05/18 21:13 21:13 21:13 Hgb 16.0 H Glucose 121 H Calcium 10.5 H Urine Blood SMALL H - Diagnostic Test Radiology reviewed: Image reviewed, Reports reviewed Discharge - Discharge Clinical Impression: Vaginal bleeding, Left ovarian cyst Condition: Good Disposition: HOME, SELF-CARE Instructions: Ovarian Cyst ([facility]) Additional Instructions: You have been evaluated in the Emergency Department for vaginal bleeding and abdominal pain. While here, you had an ultrasound that showed a left ovarian cyst as well as some thickening in the uterus and it is now safe to be discharged home. Please follow-up with gynecology/oncology as instructed as soon as possible for further workup. Return to the Emergency Department if you experience worsening pain, worsening bleeding, or any other concerning symptoms. Prescriptions: Hydrocodone/Acetaminophen [[place] 5-325 mg Tablet] 1 tab PO Q6HP PRN #20 tablet PRN Reason: For Pain Referrals: CHRIS STANFORD MD [Primary Care Provider] - Follow up as needed SHYLA HAMILTON MD [NO LOCAL MD] - Follow up as needed Print Language: Romansh
[2018-12-06] MEDS ORDERED: KETOROLAC TROMETHAMINE INJ/PF 30 MG/1 ML SDV IV ONE (02:20)
[2018-12-06 02:41] VITALS: BP 170/93
== END 2018-12-06 03:26 | disposition home or self-care (01) ==
LOC: ER 18:51
DX: N93.8 Other specified abnormal uterine and vaginal bleeding (principal); N83.202 Unspecified ovarian cyst, left side; M54.5 Low back pain; R10.9 Unspecified abdominal pain; F17.200 Nicotine dependence, unspecified, uncomplicated; I10 Essential (primary) hypertension; Z98.51 Tubal ligation status
CPT/HCPCS: 99284; 96374; 36415; 85025; 80053; 81001; 76830; 93976; J1885

== ENCOUNTER 2019-02-27 15:20 | Observation (INO) | payer SELFPAY ==
--- NOTE | 2019-02-27 15:35 | ER Document Report ---
ED NIH Stroke Scale - NIH Stroke Scale *: 1. NIH scale should be completed with appropriate accompanying assessment tools. *: 2. The NIH should reflect what the patient is capable of doing and should not be coached by the clinician. 1a. Level of Consciousness: 0=Alert;keenly responsive -: 1=Drowsy -: 2=Obtunded -: 3=Coma/unresponsive or reflex to noxious stimuli. 1a. Responses: 0 1b. Orientation Questions: a. What month is it? -: b. How old are you? -: 0=Answers both questions correctly. -: 1=Answers one question correctly or patient is intubated or has orotracheal trauma. -: 2=Answers neither question correctly. 1b. Responses: 0 1c. Response to commands: a. Open and close eyes? -: b. Acoustic Sensor Operator and release hand? -: Credit is given despite weakness. Demonstration of task is permitted. Substitute command if hands cannot be used. -: 0=Performs both tasks correctly -: 1=Performs one task correctly -: 2=Performs neither task correctly 1c. Responses: 0 2. Gaze: Establish eye contact and instruct patient to "Follow my finger" -: 0=Normal -: 1=Partial gaze palsy. Gaze is abnormal in one or both eyes, but where forced deviation or total gaze paresis is not present. -: 2=Forced deviation or total gaze paresis. 2. Responses: 0 3. Visual Mccarthy: Sees fingers in all four quadrants. -: 0=No visual loss. -: 1=Partial hemianopsia. -: 2=Complete hemianopsia. -: 3=Bilateral hemianopsia (including Cortical blindness) 3. Responses: 0 4. Facial Movement: Instruct patient to: -: a. Show me your teeth -: b. Raise your eyebrows -: c. Close your eyes -: d. Smile -: 0=Normal symmetrical movement -: 1=Minor paralysis (flattened nasolabial fold, asymmetry on smiling). -: 2=Partial paralysis (total or near total paralysis of lower face). -: 3=Complete paralysis of upper and lower face 4. Responses: 1 5. Motor functions (left arm): Alternate sides and extend each arm with palms down (90 degrees if sitting or 45 degrees for supine). -: 0=No drift;limb holds for full 10 seconds. -: 1=Drift; limb holds but drifts down before full 10 seconds, but does not hit bed. -: 2=Some effort against gravity; limb cannot get to or maintain position. -: 3=No effort against gravity; limb falls. -: 4=No movement. -: UN=Amputation, joint fusion, explain in comments. 5. Responses (left arm): 1 5. Motor Functions (right arm): Alternate sides and extend each arm with palms down (90 degrees if sitting or 45 degrees for supine). -: 0=No drift;limb holds for full 10 seconds. -: 1=Drift; limb holds but drifts down before full 10 seconds, but does not hit bed. -: 2=Some effort against gravity; limb cannot get to or maintain position. -: 3=No effort against gravity; limb falls. -: 4=No movement. -: UN=Amputation, joint fusion, explain in comments. 5. Responses (right arm): 0 6. Motor Functions (left leg): With patient lying supine, alternate sides and extend each leg (30 degrees always while supine). -: 0=No drift, leg holds position for full 5 seconds -: 1=Drift; leg falls before full 5 seconds but does not hit bed. -: 2=Some effort against gravity, leg falls to bed but some effort against gravity. -: 3=No effort against gravity, leg falls to bed immediately. -: 4=No movement. -: UN=Amputation, joint fusion; explain in comments. 6. Responses (left leg): 0 6. Motor Functions (right leg): With patient lying supine, alternate sides and extend each leg (30 degrees always while supine). -: 0=No drift, leg holds position for full 5 seconds -: 1=Drift; leg falls before full 5 seconds but does not hit bed. -: 2=Some effort against gravity, leg falls to bed but some effort against gravity. -: 3=No effort against gravity, leg falls to bed immediately. -: 4=No movement. -: UN=Amputation, joint fusion; explain in comments. 6. Responses (right leg): 0 7. Limb Ataxia: With eyes open instruct patient to: -: a. "Touch your finger to your nose". -: b. "Touch your heel to your gold" -: 0=Absent -: 1=Present in one limb. -: 2=Present in two limbs. -: UN=Amputation or joint fusion; explain in comments. 7. Responses: 0 8. Sensory: Test sensation using pinprick or noxious stimuli. Test as many body parts as possible. -: 0=Normal;no sensory loss -: 1=Mile to moderate sensory loss (patient feels pin prick but is less sharp on affected side). -: 2=Severe or total sensory loss. 8. Responses: 0 9. Best Language: Instruct patient to: -: a. "Describe what you see in this picture." -: b. "Name the items in this picture." -: c. "Read these sentences." -: 0=No aphasia, normal -: 1=Mild to moderate aphasia. -: 2=Severe aphasia -: 3=Mute, global aphasia, no usable speech or auditory comprehension. 9. Responses: 1 10. Articulation, Dysarthia: Instruct patient to: -: "Read these words" or "Repeat these words" -: 0=Normal -: 1=Mild to moderate; patient may slur some words but can be understood without difficulty. -: 2=Severe; patients speech so slurred as to be unintelligible in the absence of dysphasia. -: UN=Intubated or other physical barrier, explain in comments. 10. Responses: 0 11. Extinction or inattention: 0=No abnormality -: 1= Visual, tactile, auditory, spatial, or personal inattention or extinction to bilateral simulation in one or the sensory modalities. -: 2=Profound kem-inattention or kem-inattention to more than one modality; does not recognize own hand. 11. Responses: 0 Total Score: 3
--- NOTE | 2019-02-27 15:41 | ER Document Report ---
ED Medical Screen (RME) - General Chief Complaint: S/S of Possible Stroke Stated Complaint: GENERAL WEAKNESS Time Seen by Provider: 02/27/19 15:29 Primary Care Provider: CHRIS STANFORD MD [Primary Care Provider] - Follow up as needed Mode of Arrival: Ambulatory Information source: Patient TRAVEL OUTSIDE OF THE [place] IN LAST 30 DAYS: No - HPI Notes: 02/27/19 15:37 Patient is a 59 yr old female with a hx of hypertension presents to the emergency department for chief complaint of sudden onset vision changes since 0800 and started with difficulty speaking within last 30 minutes. Denies any [id number] medications. States family noticed she was not speaking clearly, needed to be evaluated. No new medications. denies any trauma. ROS: Other than noted above, the 12 point review of systems was reviewed with the patient and were negative, all pertinent findings are included in the HPI. PHYSICAL EXAMINATION: Vital signs reviewed. GENERAL: Well-appearing, well-nourished and in no acute distress. HEAD: Atraumatic, normocephalic. EYES: Pupils equal round extraocular movements intact, conjunctiva are normal. ENT: Nares patent NECK: Normal range of motion CV: Heart regular rate and rhythm LUNGS: No respiratory distress Musculoskeletal: Normal range of motion NEUROLOGICAL: Dysarthria Dysmetria on the left, strength equal bilaterally. Midline, face symmetrical, noted dysmetria left PSYCH: Normal mood, normal affect. MDM: Patient seen and examined for rapid initial assessment. Vital signs reviewed. CT of head ordered stat. A comprehensive ED assessment and evaluation of the patient, analysis of test results and completion of the medical decision making process will be conducted by additional ED providers. *Note is created using voice recognition software and may contain spelling, syntax or grammatical errors. 02/27/19 15:41 - Related Data Allergies/Adverse Reactions: strawberry [[place]] Allergy (Verified 09/27/17 10:35) Past Medical History - General Information source: Patient - Past Medical History Cardiac Medical History: Reports: Hx Hypertension - On no medications for any medical problems at this time. Neurological Medical History: Reports: Hx Migraine Endocrine Medical History: Denies: Hx Diabetes Mellitus Type 1, Hx Diabetes Mellitus Type 2 Renal/ Medical History: Reports: Hx Ovarian Cysts. Denies: Hx Peritoneal Dialysis Musculoskeltal Medical History: Reports Hx Arthritis Psychiatric Medical History: Reports: Hx Depression Traumatic Medical History: Reports: Hx Fractures - Fingers and toes Past Surgical History: Reports: Hx Orthopedic Surgery - "neck surgery", Hx Tubal Ligation - Immunizations Immunizations up to date: Yes Hx Diphtheria, Pertussis, Tetanus Vaccination: No Physical Exam - Vital signs Vitals: Temp Pulse Resp BP Pulse Ox 98.8 F 83 26 H 198/114 H 98 02/27/19 15:26 02/27/19 15:02/27/19 15:02/27/19 15:26 02/27/19 15:26 - Neurological Neuro grossly intact: Yes Cognition: Normal Orientation: AAOx4 Mcgregor Coma Scale Eye Opening: Spontaneous Mcgregor Coma Scale Verbal: Oriented Mcgregor Coma Scale Motor: Obeys Commands Mcgregor Coma Scale Total: 15 Speech: Dysarthria Cranial nerves: Normal Cerebellar coordination: Other - dysmetria on left. 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
--- NOTE | 2019-02-27 15:55 | RADIOLOGY REPORT (SQ) ---
EXAM DESCRIPTION: CT HEAD WITHOUT COMPLETED DATE/TIME: 02/27/2019 3:45 pm REASON FOR STUDY: slurred speech, vision changes COMPARISON: None. TECHNIQUE: Axial images acquired through the brain without intravenous contrast. Images reviewed wi th bone, brain and subdural windows. Additional sagittal and coronal reconstructions were generated. Images stored on PACS. All CT scanners at this facility use dose modulation, iterative reconstruction, and/or weight based d osing when appropriate to reduce radiation dose to as low as reasonably achievable (ALARA). [facility]: Dose Right [facility]: CareDose [facility]: Dose Right [facility]: Teradose 4D [facility]: Smart doxIQ RADIATION DOSE: CT Rad equipment meets quality standard of care and radiation dose reduction techniq ues were employed. CTDIvol: 53.2 mGy. DLP: 937 mGy-cm. mGy. LIMITATIONS: None. FINDINGS: VENTRICLES: Normal size and contour. CEREBRUM: No masses. No hemorrhage. No midline shift. No evidence for acute infarction. Normal gra y/white matter differentiation. No areas of low density in the white matter. CEREBELLUM: No masses. No hemorrhage. No alteration of density. No evidence for acute infarction. EXTRAAXIAL SPACES: No fluid collections. No masses. ORBITS AND GLOBE: No intra- or extraconal masses. Normal contour of globe without masses. CALVARIUM: No fracture. PARANASAL SINUSES: No fluid or mucosal thickening. SOFT TISSUES: No mass or hematoma. OTHER: No other significant finding. IMPRESSION: No CT evidence of acute stroke or hemorrhage. EVIDENCE OF ACUTE STROKE: NO. Findings reported to the emergency department by the critical findings communication system at the ti me of interpretation. COMMENT: Quality ID # [id number]: Final reports with documentation of one or more dose reduction techniques (e.g., Automated exposure control, adjustment of the mA and/or kV according to patient size, use of iterative reconstruction technique) TECHNICAL DOCUMENTATION: JOB ID: [id number] [employer]- All Rights Reserved Reading location - IP/workstation name: [email or web address]
[2019-02-27 16:05] LABS: ABSOLUTE BASOPHILS # (AUTO) 0.1 10^3/uL (0.0-0.2); ABSOLUTE EOSINOPHILS # (AUTO) 0.2 10^3/uL (0.0-0.6); ABSOLUTE LYMPHOCYTES (AUTO) 2.6 10^3/uL (0.5-4.7); ABSOLUTE MONOCYTES (AUTO) 0.6 10^3/uL (0.1-1.4); ABSOLUTE NEUT (AUTO) 3.8 10^3/uL (1.7-8.2); BASOPHILS % (AUTO) 0.7 % (0-2); EOSINOPHILS % (AUTO) 2.6 % (0-6); HEMOGLOBIN 15.7 g/dL (12.0-15.5); LYMPHOCYTES % (AUTO) 36.6 % (13-45); MEAN CORPUSCULAR HEMOGLOBIN 32.1 pg (27.0-33.4); MEAN CORPUSCULAR HGB CONC 34.9 g/dL (32.0-36.0); MEAN CORPUSCULAR VOLUME 92 fl (80-97); PLATELET COUNT 232 10^3/uL (150-450); RED CELL DISTRIBUTION WIDTH 12.9 % (11.5-14.0); SEGMENTED NEUTROPHILS % (AUTO) 52.1 % (42-78); TOTAL CELLS COUNTED % (AUTO) 100 %; WHITE BLOOD COUNT 7.2 10^3/uL (4.0-10.5)
--- NOTE | 2019-02-27 16:10 | RADIOLOGY REPORT (SQ) ---
EXAM DESCRIPTION: CHEST SINGLE VIEW COMPLETED DATE/TIME: 02/27/2019 3:45 pm REASON FOR STUDY: slurred speech, weakness COMPARISON: 09/27/2017 EXAM PARAMETERS: NUMBER OF VIEWS: One view. TECHNIQUE: Single frontal radiographic view of the chest acquired. RADIATION DOSE: NA LIMITATIONS: None. FINDINGS: LUNGS AND PLEURA: No opacities, masses or pneumothorax. No pleural effusion. MEDIASTINUM AND HILAR STRUCTURES: No masses. Contour normal. HEART AND VASCULAR STRUCTURES: Heart normal in size. Normal vasculature. BONES: No acute findings. HARDWARE: None in the chest. OTHER: No other significant finding. IMPRESSION: NO ACUTE RADIOGRAPHIC FINDING IN THE CHEST. TECHNICAL DOCUMENTATION: JOB ID: [id number] [employer]- All Rights Reserved Reading location - IP/workstation name: [email or web address]
[2019-02-27 16:24] LABS: ALANINE AMINOTRANSFERASE 31 U/L (9-52); ALBUMIN 4.5 g/dL (3.5-5.0); ALKALINE PHOSPHATASE 55 U/L (38-126); ANION GAP 8 (5-19); ASPARTATE AMINO TRANSFERASE 27 U/L (14-36); BILIRUBIN,DIRECT 0.3 mg/dL (0.0-0.4); BILIRUBIN,TOTAL 0.6 mg/dL (0.2-1.3); BLOOD UREA NITROGEN 12 mg/dL (7-20); CALCIUM 10.1 mg/dL (8.4-10.2); CARBON DIOXIDE 25 mmol/L (22-30); CHLORIDE 107 mmol/L (98-107); CREATINE KINASE 68 U/L (30-135); GLUCOSE 113 mg/dL (75-110); POTASSIUM 4.1 mmol/L (3.6-5.0); TOTAL PROTEIN 7.1 g/dL (6.3-8.2)
[2019-02-27 16:36] LABS: CREATINE KINASE MB 1.02 ng/mL (<4.55)
[2019-02-27 16:37] LABS: TROPONIN I < 0.012 ng/mL
[2019-02-27 16:43] LABS: APPEARANCE,URINE SLIGHTLY-CLOUDY; BILIRUBIN,URINE NEGATIVE (NEGATIVE); COLOR,URINE YELLOW; GLUCOSE, URINE NEGATIVE (NEGATIVE); KETONES,URINE NEGATIVE (NEGATIVE); LEUKOCYTE ESTERASE,URINE NEGATIVE (NEGATIVE); NITRITE,URINE NEGATIVE (NEGATIVE); PROTEIN,URINE NEGATIVE (NEGATIVE); URINE SPECIFIC GRAVITY 1.004; UROBILINOGEN,URINE NEGATIVE mg/dL (<2.0)
[2019-02-27 16:46] LABS: INTERNATIONAL RATION (INR) 0.93; PROTHROMBIN TIME 12.5 SEC (11.4-15.4)
[2019-02-27] MEDS ORDERED: CEPHALEXIN 500 MG CAPSULE PO ONE (18:04)
--- NOTE | 2019-02-27 18:05 | ER Document Report ---
ED General - General Chief Complaint: S/S of Possible Stroke Stated Complaint: GENERAL WEAKNESS Time Seen by Provider: 02/27/19 15:29 Mode of Arrival: Ambulatory Information source: Patient TRAVEL OUTSIDE OF THE [place] IN LAST 30 DAYS: No - HPI Notes: Patient is a 59-year-old female history of hypercholesterolemia and polycythemia who has not undergone blood removal since October of this year comes in with report that at 830 this morning she abruptly felt a generalized weakness and was near syncopal and then noted left facial numbness thereafter. She denies any chest pain or shortness of breath or abdominal pain. The patient denies any constipation or diarrhea or nausea or vomiting she reports no aphasia. The patient reports that since 830 this morning she has had some improvement in her left facial numbness but it persists. She reports a prior headache. She describes some mild photophobia and has a history of migraines, but is never had anything similar to this happened previously. - Related Data Allergies/Adverse Reactions: strawberry [[place]] Allergy (Verified 09/27/17 10:35) Past Medical History - General Information source: Patient - Social History Smoking Status: Current Every Day Smoker Chew tobacco use (# tins/day): No Frequency of alcohol use: None Drug Abuse: None Lives with: Alone Family History: Reviewed & Not Pertinent Patient has suicidal ideation: No Patient has homicidal ideation: No - Past Medical History Cardiac Medical History: Reports: Hx Hypertension - On no medications for any medical problems at this time. Neurological Medical History: Reports: Hx Migraine Endocrine Medical History: Denies: Hx Diabetes Mellitus Type 1, Hx Diabetes Mellitus Type 2 Renal/ Medical History: Reports: Hx Ovarian Cysts. Denies: Hx Peritoneal Dialysis Musculoskeletal Medical History: Reports Hx Arthritis Psychiatric Medical History: Reports: Hx Depression Traumatic Medical History: Reports: Hx Fractures - Fingers and toes Past Surgical History: Reports: Hx Orthopedic Surgery - "neck surgery", Hx Tubal Ligation - Immunizations Immunizations up to date: Yes Hx Diphtheria, Pertussis, Tetanus Vaccination: No Review of Systems - Review of Systems -: Yes All other systems reviewed and negative Physical Exam - Vital signs Vitals: Temp Pulse Resp BP Pulse Ox 98.8 F 83 26 H 198/114 H 98 02/27/19 15:26 02/27/19 15:26 02/27/19 15:26 02/27/19 15:26 02/27/19 15:26 - Notes Notes: PHYSICAL EXAMINATION: GENERAL: Well-appearing, well-nourished and in no acute distress. HEAD: Atraumatic, normocephalic. EYES: Pupils equal round and reactive to light, extraocular movements intact, conjunctiva are normal. Anterior chambers are clear. Visual vincent are intact. ENT: Nares patent, oropharynx clear without exudates. Moist mucous membranes. Very poor dentition. NECK: Normal range of motion, supple without lymphadenopathy. No gross carotid bruits. LUNGS: Breath sounds clear to auscultation bilaterally and equal. No wheezes rales or rhonchi. HEART: Regular rate and rhythm without murmurs ABDOMEN: Soft, nontender, nondistended abdomen. No guarding, no rebound. No masses appreciated. Female : deferred Musculoskeletal: Normal range of motion, no pitting or edema. No cyanosis. NEUROLOGICAL: Cranial nerves intact with the exception of subjective numbness to the left face. No facial swelling. Normal speech. gait not tested. Normal sensory, motor exams. No obvious cerebellar ataxia. Visual vincent are intact. PSYCH: Normal mood, normal affect. SKIN: Warm, Dry, normal turgor, no rashes or lesions noted. Course - Re-evaluation Re-evalutation: 02/27/19 18:56 Initial blood pressure was elevated at 198/116. Shortly thereafter the blood pressure improved and repeat blood pressure was 174/92. No grossly elevated hemoglobin that could account for the event, although history of polycythemia is concerning. Cannot exclude a hypertensive encephalopathy, Although blood pressure is improved. Symptoms would fit for a TIA in a patient that has not had no appropriate work- up and is noncompliant with her anticholesterol therapy. No evidence for acute intracranial hemorrhage. No clinical suggestion for glaucoma. No obvious cardiac arrhythmia noted. 02/27/19 18:57 02/27/19 18:58 Discussed with the hospitalist Dr. Valencia, who agreed to see the patient further and evaluate. - Vital Signs Vital signs: Temp Pulse Resp BP Pulse Ox 98.8 F 79 20 176/90 H 96 02/27/19 15:26 02/27/19 16:39 02/27/19 17:02 02/27/19 17:02 02/27/19 17:02 - Laboratory Result Diagrams: 02/27/19 15:55 02/27/19 15:55 Laboratory results interpreted by me: 02/27/19 02/27/19 15:55 15:55 Hgb 15.7 H Glucose 113 H - EKG Interpretation by Me EKG shows normal: Sinus rhythm Additional EKG results interpreted by me: 02/27/19 19:03 EKG as interp by me showed NSR rate 73, no gross evidence for acute RI or ischemia. No change from old EKG from 09/27/17. Critical Care Note - Critical Care Note Total time excluding time spent on procedures (mins): 42 Discharge - Discharge Clinical Impression: TIA (transient ischemic attack), Paresthesia, Noncompliance Hypertension Qualifiers: Hypertension type: essential hypertension Qualified Code(s): I10 - Essential (primary) hypertension Disposition: ADMITTED INPATIENT Admitting Provider: Annie (Hospitalist) Unit Admitted: Telemetry
[2019-02-27] MEDS ORDERED: ACETAMINOPHEN 325 MG TABLET PO PRN (18:28)
[2019-02-27] MEDS ORDERED: OXYCODONE-ACETAMINOPHEN 5-325 MG TABLET PO PRN (18:28)
[2019-02-27] MEDS ORDERED: PROMETHAZINE HCL INJ 25 MG/1 ML VIAL IV PRN (18:28)
[2019-02-27] MEDS ORDERED: ONDANSETRON HCL INJ/PF 4 MG/2 ML SDV IV PRN (18:28)
[2019-02-27] MEDS ORDERED: TEMAZEPAM 7.5 MG CAPSULE PO PRN (18:28)
[2019-02-27] MEDS ORDERED: ASPIRIN 325 MG TABLET PO ONE (18:32)
--- NOTE | 2019-02-27 18:46 | PDOC H&P ---
History of Present Illness History of Present Illness: NELSON VIERA is a 59 year old female past medical history of polycythemia, tobacco abuse, untreated hypertension, untreated dyslipidemia, obesity, COPD not on oxygen, presenting to ED complaining of left facial numbness and generalized weakness. This morning patient was walking to store when she suddenly felt numbness and tingling to the right face, associated with bilateral eye pressure and blurry vision associated with dizziness and generalized weakness. Patient made it to the restroom and got some rest and most of her symptoms went away except for her left facial numbness which has persisted to present. Denies any focal weakness, headache, head trauma, double vision, numbness, tingling, loss of balance, loss of conscious, fall, palpitations, shortness of breath, chest pain, nausea, vomiting, abdominal pain, diarrhea, constipation, weight loss, weight gain, cold intolerance, hair or nail changes, dysuria, hematuria, urgency. In ED she was found to be hypertensive, otherwise unremarkable work-up, CT head negative for acute changes, chest x-ray unremarkable. Hospitalist was consulted for TIA work-up. Past Medical History Cardiac Medical History: Reports: Hyperlipidema, Hypertension - On no medications for any medical problems at this time. Pulmonary Medical History: Reports: Chronic Obstructive Pulmonary Disease (COPD) Neurological Medical History: Reports: Migraine Endocrine Medical History: Denies: Diabetes Mellitus Type 1, Diabetes Mellitus Type 2 Musculoskeltal Medical History: Reports: Arthritis Psychiatric Medical History: Reports: Depression Past Surgical History Past Surgical History: Reports: Orthopedic Surgery - "neck surgery", Tubal Lig ation Social History Smoking Status: Current Every Day Smoker Family History Family History: Reviewed & Not Pertinent Parental Family History Reviewed: Yes Children Family History Reviewed: Yes Sibling(s) Family History Reviewed.: Yes Medication/Allergy Home Medications: Aspirin [Adult Aspirin Regimen] 81 mg PO DAILY 30 Days #30 tablet. 02/28/19 Lisinopril/Hydrochlorothiazide [Lisinopril-Hctz 10-12.5 mg Tab] 1 each PO DAILY 30 Days #30 tablet 02/28/19 Nitrofurantoin Macrocrystal [Macrodantin] 100 mg PO BID 5 Days #10 capsule 02/28/19 Rosuvastatin Calcium [Crestor] 20 mg PO QHS 30 Days #30 tablet 02/28/19 Allergies/Adverse Reactions: strawberry [[place]] Allergy (Verified 09/27/17 10:35) Review of Systems Review of Systems: as per hpi Physical Exam Vital Signs: Temp Pulse Resp BP Pulse Ox 98.8 F 79 20 176/90 H 96 02/27/19 15:26 02/27/19 16:39 02/27/19 17:02 02/27/19 17:02 02/27/19 17:02 Intake & Output 02/26/19 02/27/19 02/28/19 06:59 06:59 06:59 Weight 93.9 kg General appearance: PRESENT: no acute distress, well-developed, well-nourished Head exam: PRESENT: atraumatic, normocephalic Respiratory exam: PRESENT: clear to auscultation sofie. ABSENT: rales, rhonchi, wheezes Cardiovascular exam: PRESENT: RRR. ABSENT: diastolic murmur, rubs, systolic murmur GI/Abdominal exam: PRESENT: normal bowel sounds, soft. ABSENT: distended, guarding, mass, organolmegaly, rebound, tenderness Extremities exam: PRESENT: full ROM. ABSENT: calf tenderness, clubbing, pedal edema Neurological exam: PRESENT: alert, awake, oriented to person, oriented to place, oriented to time, oriented to situation, CN II-XII grossly intact. ABSENT: motor sensory deficit Skin exam: PRESENT: dry, intact, warm. ABSENT: cyanosis, rash Results Laboratory Results: 02/27/19 15:55 02/27/19 15:55 02/27/19 02/27/19 02/27/19 15:55 15:55 16:23 WBC 7.2 RBC 4.90 Hgb 15.7 H Hct 45.0 MCV 92 MCH 32.1 MCHC 34.9 RDW 12.9 Plt Count 232 Seg Neutrophils % 52.1 Lymphocytes % 36.6 Monocytes % 8.0 Eosinophils % 2.6 Basophils % 0.7 Absolute Neutrophils 3.8 Absolute Lymphocytes 2.6 Absolute Monocytes 0.6 Absolute Eosinophils 0.2 Absolute Basophils 0.1 Sodium 140.0 Potassium 4.1 Chloride 107 Carbon Dioxide 25 Anion Gap 8 BUN 12 Creatinine 0.75 Est GFR ( Amer) > 60 Est GFR (Non-Af Amer) > 60 Glucose 113 H Calcium 10.1 Total Bilirubin 0.6 AST 27 ALT 31 Alkaline Phosphatase 55 Total Protein 7.1 Albumin 4.5 Urine Color YELLOW Urine Appearance SLIGHTLY-CLOUDY Urine pH 7.0 Ur Specific [place] 1.004 Urine Protein NEGATIVE Urine Glucose (UA) NEGATIVE Urine Ketones NEGATIVE Urine Blood NEGATIVE Urine Nitrite NEGATIVE Ur Leukocyte Esterase NEGATIVE Urine WBC (Auto) 6 Urine RBC (Auto) 1 02/27/19 02/27/19 15:55 15:55 Creatine Kinase 68 CK-MB (CK-2) 1.02 Troponin I < 0.012 Impressions: Head CT 02/27/19 15:32 IMPRESSION: No CT evidence of acute stroke or hemorrhage. EVIDENCE OF ACUTE STROKE: NO. Findings reported to the emergency department by the critical findings communication system at the time of interpretation. Chest X-Ray 02/27/19 15:33 IMPRESSION: NO ACUTE RADIOGRAPHIC FINDING IN THE CHEST. Assessment and Plan - Diagnosis (1) Left facial numbness Is this a current diagnosis for this admission?: Yes Plan: CT head negative. Admit to IMCU, aspirin, statins, PT/OT/ST, fall, seizure, aspiration precautions. Carotid echo, MRI brain. (2) Generalized weakness Is this a current diagnosis for this admission?: Yes Plan: As per #1. Supportive measures. CBC, CMP, UA WNL for elevated hematocrit. (3) COPD (chronic obstructive pulmonary disease) Is this a current diagnosis for this admission?: Yes Plan: Does not seems to be acutely exacerbated. PRN supplemental oxygen and duo nebs, PRN BiPAP. (4) Hypertension Qualifiers: Hypertension type: essential hypertension Qualified Code(s): I10 - Essential (primary) hypertension Is this a current diagnosis for this admission?: Yes Plan: Uncontrolled. Start on lisinopril, adjust dose as needed, PRN hydralazine. (5) Tobacco abuse Is this a current diagnosis for this admission?: Yes Plan: Consult on quitting. NicoDerm patch. (6) UTI (urinary tract infection) Is this a current diagnosis for this admission?: Yes
[2019-02-27] MEDS ORDERED: HYDRALAZINE HCL INJ/PF 20 MG/1 ML SDV IV PRN (18:47)
[2019-02-27] MEDS: LISINOPRIL 10 MG TABLET PO SCH (19:11)
[2019-02-27 19:14] LABS: CHOLESTEROL 222.49 mg/dL (0-200); TRIGLYCERIDES 307 mg/dL (<150)
[2019-02-27 19:27] LABS: DIRECT LDL 149 mg/dL (<100)
[2019-02-27 19:28] LABS: VLDL CHOLESTEROL 61.4 mg/dL (10-31)
[2019-02-27] MEDS ORDERED: NICOTINE 7 MG/24 HR PATCH.TD24 TD ONE (20:00)
--- NOTE | 2019-02-27 20:29 | RADIOLOGY REPORT (SQ) ---
EXAM DESCRIPTION: [facility]: US CAROTID DOPPLER BILATERAL CLINICAL HISTORY: 59 years Female; Lt Facial Numbness TECHNIQUE: Grayscale and Doppler (color and pulse) ultrasound of bilateral carotid arteries and the vertebral arteries was performed. Stenosis assessment based on Carotid Artery Stenosis: Shelley-Scale and Doppler US DiagnosisSociety of Radiologists in Ultrasound Consensus Conference; Radiology, Jun 2003, Vol. 229:340-346 COMPARISON: None. FINDINGS: All velocities in cm/sec. Right carotid: Morphology: Minimal noncalcified plaque ICA velocities: Proximal 88/23, distal 98/24 (Normal < 124/40) CCA PSV: Proximal 67, distal 113 ICA/CCA PSV ratio: 0.9 (Normal < 2.0) ECA: 125 Left carotid: Morphology: Minimal noncalcified plaque ICA velocities: Proximal 101/31, distal 96/30 (Normal < 124/40) CCA PSV: Proximal 91, distal 121 ICA/CCA PSV ratio: 0.8 (Normal < 2.0) ECA: 121 Right vertebral: Antegrade, 58 Left vertebral: Antegrade, 59 IMPRESSION: 1. Minimal atherosclerosis 2. No stenosis of the cervical carotid arteries 3. Normal antegrade flow in both vertebral arteries
--- NOTE | 2019-02-27 20:38 | RADIOLOGY REPORT (SQ) ---
EXAM DESCRIPTION: [facility]: MR BRAIN WITHOUT IV CONTRAST CLINICAL HISTORY: 59 years Female; Lt Facial numnbess TECHNIQUE: Routine noncontrast MRI brain protocol COMPARISON: CT 02/27/2019 FINDINGS: No diffusion restriction. 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 Single 5 mm focus of gliosis in the posterior left frontal subcortical white matter. No acute cerebral edema. 3 mm focus of increased T2 signal in the hernandez to the left of midline No hemosiderin deposition. No midline shift or mass effect. Ventricles and cisterns are preserved. Calvarial marrow is normal. Paranasal sinuses and mastoid air cells are clear. Normal flow-voids are seen in the major intracranial arteries. IMPRESSION: 1. No acute infarct or other acute intracranial findings 2. Minimal chronic ischemic changes as described.
[2019-02-27] MEDS: IPRATROPIUM/ALBUTEROL 0.5-2.5 MG/3 ML AMPUL NEB SCH (21:20)
[2019-02-27] MEDS: FAMOTIDINE 20 MG TABLET PO SCH (21:35)
[2019-02-27] MEDS ORDERED: ATORVASTATIN CALCIUM 40 MG TABLET PO SCH (22:00)
--- NOTE | 2019-02-28 00:17 | EKG REPORT ---
SEVERITY:- NORMAL ECG - SINUS RHYTHM : Confirmed by: eKrri Omalley 28-Feb-2019 00:16:55
[2019-02-28 06:14] LABS: ABSOLUTE EOSINOPHILS # (AUTO) 0.2 10^3/uL (0.0-0.6); ABSOLUTE MONOCYTES (AUTO) 0.7 10^3/uL (0.1-1.4); ABSOLUTE NEUT (AUTO) 3.3 10^3/uL (1.7-8.2); BASOPHILS % (AUTO) 0.4 % (0-2); EOSINOPHILS % (AUTO) 2.8 % (0-6); HEMATOCRIT 42.3 % (36.0-47.0); HEMOGLOBIN 14.8 g/dL (12.0-15.5); LYMPHOCYTES % (AUTO) 41.8 % (13-45); MEAN CORPUSCULAR HEMOGLOBIN 32.1 pg (27.0-33.4); MEAN CORPUSCULAR VOLUME 92 fl (80-97); MONOCYTES % (AUTO) 9.8 % (3-13); PLATELET COUNT 192 10^3/uL (150-450); RED CELL DISTRIBUTION WIDTH 12.9 % (11.5-14.0); SEGMENTED NEUTROPHILS % (AUTO) 45.2 % (42-78); TOTAL CELLS COUNTED % (AUTO) 100 %; WHITE BLOOD COUNT 7.3 10^3/uL (4.0-10.5)
[2019-02-28 06:31] LABS: ANION GAP 6 (5-19); BLOOD UREA NITROGEN 14 mg/dL (7-20); CALCIUM 9.1 mg/dL (8.4-10.2); CARBON DIOXIDE 27 mmol/L (22-30); CHLORIDE 108 mmol/L (98-107); GLUCOSE 122 mg/dL (75-110); POTASSIUM 4.3 mmol/L (3.6-5.0); SODIUM 141.2 mmol/L (137-145)
[2019-02-28] MEDS: IPRATROPIUM/ALBUTEROL 0.5-2.5 MG/3 ML AMPUL NEB SCH ×2 (08:12→13:55)
[2019-02-28] MEDS: FAMOTIDINE 20 MG TABLET PO SCH (09:40)
[2019-02-28] MEDS: LISINOPRIL 10 MG TABLET PO SCH (09:40)
[2019-02-28] MEDS ORDERED: DOCUSATE SODIUM 100 MG/10 ML UDC PO SCH (10:00)
[2019-02-28] MEDS ORDERED: ENOXAPARIN SODIUM INJ 40 MG/0.4 ML DISP.SYRIN SUBCUT SCH (10:00)
[2019-02-28] MEDS ORDERED: ASPIRIN 81 MG TABLET, CHEWABLE PO SCH (10:00)
[2019-02-28 15:30] VITALS: BP 127/65
--- NOTE | 2019-03-05 09:05 | PDOC DISCHARGE SUMMARY ---
General - Admit/Disc Date/PCP Admission Date/Primary Care Provider: 02/27/19 19:26 EL MCCORMACK MD Discharge Date: 02/28/19 - Discharge Diagnosis (1) Left facial numbness Is this a current diagnosis for this admission?: Yes (2) Generalized weakness Is this a current diagnosis for this admission?: Yes (3) COPD (chronic obstructive pulmonary disease) Is this a current diagnosis for this admission?: Yes (4) Hypertension Is this a current diagnosis for this admission?: Yes (5) Tobacco abuse Is this a current diagnosis for this admission?: Yes (6) UTI (urinary tract infection) Is this a current diagnosis for this admission?: Yes - Additional Information Resuscitation Status: Full Code Discharge Diet: Cardiac Discharge Activity: Activity As Tolerated Prescriptions: Aspirin [Adult Aspirin Regimen] 81 mg PO DAILY 30 Days #30 tablet. Lisinopril/Hydrochlorothiazide [Lisinopril-Hctz 10-12.5 mg Tab] 1 each PO DAILY 30 Days #30 tablet Nitrofurantoin Macrocrystal [Macrodantin] 100 mg PO BID 5 Days #10 capsule Rosuvastatin Calcium [Crestor] 20 mg PO QHS 30 Days #30 tablet Home Medications: Aspirin [Adult Aspirin Regimen] 81 mg PO DAILY 30 Days #30 tablet. 02/28/19 Lisinopril/Hydrochlorothiazide [Lisinopril-Hctz 10-12.5 mg Tab] 1 each PO DAILY 30 Days #30 tablet 02/28/19 Nitrofurantoin Macrocrystal [Macrodantin] 100 mg PO BID 5 Days #10 capsule 02/28/19 Rosuvastatin Calcium [Crestor] 20 mg PO QHS 30 Days #30 tablet 02/28/19 History of Present Illness History of Present Illness: NELSON VIERA is a 59 year old female past medical history of polycythemia, tobacco abuse, untreated hypertension, untreated dyslipidemia, obesity, COPD not on oxygen, presenting to ED complaining of left facial numbness and generalized weakness. This morning patient was walking to store when she suddenly felt numbness and tingling to the right face, associated with bilateral eye pressure and blurry vision associated with dizziness and generalized weakness. Patient made it to the restroom and got some rest and most of her symptoms went away except for her left facial numbness which has persisted to present. Denies any focal weakness, headache, head trauma, double vision, numbness, tingling, loss of balance, loss of conscious, fall, palpitations, shortness of breath, chest pain, nausea, vomiting, abdominal pain, diarrhea, constipation, weight loss, weight gain, cold intolerance, hair or nail changes, dysuria, hematuria, urgency. In ED she was found to be hypertensive, otherwise unremarkable work-up, CT head negative for acute changes, chest x-ray unremarkable. Hospitalist was consulted for TIA work-up. Hospital Course Hospital Course: (1) Left facial numbness Resolved. Likely TIA Admited to IMCU, aspirin, statins, PT/OT/ST, fall, seizure, aspiration precautions. CT/MRI head and Carotid Doppler negative. (2) Generalized weakness Resolved. As per #1. Supportive measures. CBC, CMP, UA WNL for elevated hematocrit. (3) COPD (chronic obstructive pulmonary disease) Does not seems to be acutely exacerbated. PRN supplemental oxygen and duo nebs, PRN BiPAP. (4) Hypertension Was started on Lisinopril. Was given scrip for HCTZ/Linopril home meds, untill seen by PCP. PCP appointment was made Started on lisinopril, adjust dose as needed, PRN hydralazine. (5) Tobacco abuse Consult on quitting. NicoDerm patch. (6) UTI (urinary tract infection) Due to Ecoli Pansenstive. Was sent home on Macrobid. Physical Exam Vital Signs: Temp Pulse Resp BP Pulse Ox 97.9 F 69 16 127/65 H 97 02/28/19 15:35 02/28/19 15:35 02/28/19 15:35 02/28/19 15:35 02/28/19 15:35 General appearance: PRESENT: no acute distress, well-developed, well-nourished Head exam: PRESENT: atraumatic, normocephalic Eye exam: PRESENT: conjunctiva pink, EOMI, PERRLA. ABSENT: scleral icterus Ear exam: PRESENT: normal external ear exam Mouth exam: PRESENT: moist, tongue midline Neck exam: ABSENT: carotid bruit, JVD, lymphadenopathy, thyromegaly Respiratory exam: PRESENT: clear to auscultation sofie. ABSENT: rales, rhonchi, wheezes Cardiovascular exam: PRESENT: RRR. ABSENT: diastolic murmur, rubs, systolic murmur Pulses: PRESENT: normal dorsalis pedis pul Vascular exam: PRESENT: normal capillary refill GI/Abdominal exam: PRESENT: normal bowel sounds, soft. ABSENT: distended, gua rding, mass, organolmegaly, rebound, tenderness Rectal exam: PRESENT: deferred Extremities exam: PRESENT: full ROM. ABSENT: calf tenderness, clubbing, pedal edema Neurological exam: PRESENT: alert, awake, oriented to person, oriented to place, oriented to time, oriented to situation, CN II-XII grossly intact. ABSENT: motor sensory deficit Psychiatric exam: PRESENT: appropriate affect, normal mood. ABSENT: homicidal ideation, suicidal ideation Skin exam: PRESENT: dry, intact, warm. ABSENT: cyanosis, rash Results Laboratory Results: 02/28/19 05:36 02/28/19 05:36 02/27/19 02/27/19 15:55 15:55 Creatine Kinase 68 CK-MB (CK-2) 1.02 Troponin I < 0.012 Impressions: Carotid Doppler Study 02/27/19 00:00 IMPRESSION: 1. Minimal atherosclerosis 2. No stenosis of the cervical carotid arteries 3. Normal antegrade flow in both vertebral arteries Head MRI 02/27/19 00:00 IMPRESSION: 1. No acute infarct or other acute intracranial findings 2. Minimal chronic ischemic changes as described. Head CT 02/27/19 15:32 IMPRESSION: No CT evidence of acute stroke or hemorrhage. EVIDENCE OF ACUTE STROKE: NO. Findings reported to the emergency department by the critical findings communication system at the time of interpretation. Chest X-Ray 02/27/19 15:33 IMPRESSION: NO ACUTE RADIOGRAPHIC FINDING IN THE CHEST. Qualifiers - * PATIENT BEING DISCHARGED WITH ANY OF THE FOLLOWING DIAGNOSIS: No Acute Heart Failure - Is this a Heart Failure Patient?: No
== END 2019-02-28 16:05 | disposition home or self-care (01) ==
LOC: ER 15:20 → INTOOBSV 19:26 → EH 19:26 → 3N 02-28 01:37
PROVIDERS: ADMIT Internal Medicine; ATTEND Internal Medicine
DX: R20.0 Anesthesia of skin (principal); R53.1 Weakness; J44.9 Chronic obstructive pulmonary disease, unspecified; I10 Essential (primary) hypertension; N39.0 Urinary tract infection, site not specified; B96.29 Other Escherichia coli [E. coli] as the cause of diseases classified elsewhere; E78.5 Hyperlipidemia, unspecified; R20.2 Paresthesia of skin; H53.8 Other visual disturbances; R55 Syncope and collapse; H53.149 Visual discomfort, unspecified; R47.1 Dysarthria and anarthria; R27.8 Other lack of coordination; F17.200 Nicotine dependence, unspecified, uncomplicated; Z79.82 Long term (current) use of aspirin; Z79.899 Other long term (current) drug therapy; Z91.14 Patient's other noncompliance with medication regimen; Z86.2 Personal history of diseases of the blood and blood-forming organs and certain disorders involving the immune mechanism; R29.703 NIHSS score 3
CPT/HCPCS: 93005; 99285; 36415 ×2; 87086; 82553; 82550; 84443; 85025 ×2; 85610; 87088; 80048; 80053; 81001; 84484; 87186; 83036; 80061; 93880; 70551; 71045; 70450; 93010; 94640 ×2; 97530; 97161; G0378 ×2; J1650; J3490 ×2; J7620 ×2

== ENCOUNTER 2019-06-27 09:42 | Emergency (ER) | payer SELFPAY ==
[2019-06-27] MEDS ORDERED: RINGERS SOLUTION,LACTATED 1,000 ML IV ONE (12:20)
[2019-06-27] MEDS ORDERED: KETOROLAC TROMETHAMINE INJ/PF 30 MG/1 ML SDV IV ONE (12:21)
[2019-06-27] MEDS ORDERED: DIPHENHYDRAMINE HCL 50 MG/ML VIAL IV ONE (12:21)
[2019-06-27] MEDS ORDERED: PROCHLORPERAZINE EDISYLATE INJ 10 MG/2 ML VIAL IV ONE (12:21)
--- NOTE | 2019-06-27 12:26 | ER Document Report ---
ED General - General Chief Complaint: Headache Stated Complaint: HEADACHE Time Seen by Provider: 06/27/19 12:02 TRAVEL OUTSIDE OF THE [place] IN LAST 30 DAYS: No - HPI Notes: Patient presents with multiple complaints. First complaint is that she has a frontal headache with tingling in her forehead. She states that she has had headaches like this several times in her life. The headache has subsided since she has been in the emergency department without any intervention. Actually, she is been having a dry nonproductive cough for the last 2 weeks. She states that she has intermittent tightness in her chest that is relieved by straightening her back and straightening her sternum. No recent fevers or illnesses. She has a history of hypertension otherwise denies any other medical problems. She does not have chest pain at this time. - Related Data Allergies/Adverse Reactions: strawberry [[place]] Allergy (Verified 09/27/17 10:35) Past Medical History - Social History Smoking Status: Former Smoker Chew tobacco use (# tins/day): No Frequency of alcohol use: None Drug Abuse: None Family History: Reviewed & Not Pertinent Patient has suicidal ideation: No Patient has homicidal ideation: No - Past Medical History Cardiac Medical History: Reports: Hx Hypercholesterolemia, Hx Hypertension - On no medications for any medical problems at this time. Pulmonary Medical History: Reports: Hx COPD Neurological Medical History: Reports: Hx Migraine Endocrine Medical History: Denies: Hx Diabetes Mellitus Type 1, Hx Diabetes Mellitus Type 2 Renal/ Medical History: Reports: Hx Ovarian Cysts. Denies: Hx Peritoneal Dialysis Musculoskeletal Medical History: Reports Hx Arthritis Psychiatric Medical History: Reports: Hx Depression Traumatic Medical History: Reports: Hx Fractures - Fingers and toes Past Surgical History: Reports: Hx Orthopedic Surgery - "neck surgery", Hx Tubal Ligation - Immunizations Immunizations up to date: Yes Hx Diphtheria, Pertussis, Tetanus Vaccination: No Review of Systems - Review of Systems Constitutional: No symptoms reported EENT: No symptoms reported Cardiovascular: See HPI Respiratory: See HPI Gastrointestinal: No symptoms reported Genitourinary: No symptoms reported Female Genitourinary: No symptoms reported Musculoskeletal: See HPI Skin: No symptoms reported Hematologic/Lymphatic: No symptoms reported Neurological/Psychological: No symptoms reported Physical Exam - Vital signs Vitals: Temp Pulse Resp BP Pulse Ox 97.9 F 81 20 182/95 H 96 06/27/19 09:58 06/27/19 09:58 06/27/19 09:58 06/27/19 09:58 06/27/19 09:58 - General General appearance: Appears well, Alert - HEENT Head: Normocephalic, Atraumatic Eyes: Normal Conjunctiva: Normal Cornea: Normal Pupils: PERRL - Respiratory Respiratory status: No respiratory distress Chest status: Nontender Breath sounds: Normal, Nonproductive cough Chest palpation: Normal - Cardiovascular Rhythm: Regular Heart sounds: Normal auscultation Murmur: No - Abdominal Inspection: Normal Distension: No distension Bowel sounds: Normal Tenderness: Nontender - Neurological Neuro grossly intact: Yes Cognition: Normal Orientation: AAOx4 Cranial nerves: Normal Cerebellar coordination: Normal Course - Re-evaluation Re-evalutation: 06/27/19 12:25 Well-appearing patient pleasant smiling no acute distress with normal exam other than a nonproductive cough and taking deep breaths when auscultating lungs. She has had chest tightness that seems positional in nature is been going on for 2 weeks will describe patient at this time low risk heart score single troponin EKG. Chest x-ray pending we will also provide migraine cocktail her headache has subsided but she still has a mild headache at this time. Similar to prior headaches she has had in the past. 06/27/19 13:51 Headache symptoms improved. Chest x-ray shows no acute abnormalities normal EKG labs within normal limits are nonsignificant including troponin. Discussed findings with patient. Will provide naproxen for any recurrent headaches as well as her chest discomfort relieved with position.. 06/27/19 13:52 - Vital Signs Vital signs: Temp Pulse Resp BP Pulse Ox 97.9 F 81 20 182/95 H 96 06/27/19 09:58 06/27/19 09:58 06/27/19 09:58 06/27/19 09:58 06/27/19 09:58 - Laboratory Result Diagrams: 06/27/19 10:26 06/27/19 10:26 Laboratory results interpreted by me: 06/27/19 10:26 Chloride 110 H Glucose 136 H Discharge - Discharge Clinical Impression: Chest pain Qualifiers: Chest pain type: unspecified Qualified Code(s): R07.9 - Chest pain, unspecified Headache Qualifiers: Headache type: unspecified Headache chronicity pattern: unspecified pattern Intractability: not intractable Qualified Code(s): R51 - Headache Condition: Good Disposition: HOME, SELF-CARE Instructions: Headache ([facility]), Chest Pain of Unclear Cause ([facility]) Prescriptions: Naproxen [Naprosyn] 500 mg PO BID PRN #15 tablet PRN Reason: Referrals: [facility] [NO LOCAL MD] - Follow up in 3-5 days (If symptoms are not improving)
[2019-06-27 12:38] LABS: ABSOLUTE EOSINOPHILS # (AUTO) 0.2 10^3/uL (0.0-0.6); ABSOLUTE LYMPHOCYTES (AUTO) 2.4 10^3/uL (0.5-4.7); ABSOLUTE MONOCYTES (AUTO) 0.5 10^3/uL (0.1-1.4); ABSOLUTE NEUT (AUTO) 4.5 10^3/uL (1.7-8.2); BASOPHILS % (AUTO) 0.5 % (0-2); EOSINOPHILS % (AUTO) 2.6 % (0-6); HEMATOCRIT 44.2 % (36.0-47.0); HEMOGLOBIN 15.4 g/dL (12.0-15.5); LYMPHOCYTES % (AUTO) 31.9 % (13-45); MEAN CORPUSCULAR HEMOGLOBIN 31.9 pg (27.0-33.4); MEAN CORPUSCULAR VOLUME 91 fl (80-97); PLATELET COUNT 227 10^3/uL (150-450); RED BLOOD COUNT 4.84 10^6/uL (3.72-5.28); TOTAL CELLS COUNTED % (AUTO) 100 %; WHITE BLOOD COUNT 7.6 10^3/uL (4.0-10.5)
[2019-06-27 12:49] LABS: ALBUMIN 4.1 g/dL (3.5-5.0); ALKALINE PHOSPHATASE 57 U/L (38-126); ANION GAP 9 (5-19); ASPARTATE AMINO TRANSFERASE 25 U/L (14-36); BILIRUBIN,DIRECT 0.2 mg/dL (0.0-0.4); BILIRUBIN,TOTAL 0.6 mg/dL (0.2-1.3); BLOOD UREA NITROGEN 9 mg/dL (7-20); CALCIUM 9.2 mg/dL (8.4-10.2); CARBON DIOXIDE 22 mmol/L (22-30); CHLORIDE 110 mmol/L (98-107); GLUCOSE 136 mg/dL (75-110); POTASSIUM 4.1 mmol/L (3.6-5.0)
--- NOTE | 2019-06-27 12:57 | EKG REPORT ---
SEVERITY:- NORMAL ECG - SINUS RHYTHM : Confirmed by: Omero Mcmahan MD 27-Jun-2019 12:56:57
--- NOTE | 2019-06-27 13:06 | RADIOLOGY REPORT (SQ) ---
EXAM DESCRIPTION: CHEST SINGLE VIEW COMPLETED DATE/TIME: 06/27/2019 12:50 pm REASON FOR STUDY: chest pain COMPARISON: 02/27/19. EXAM PARAMETERS: NUMBER OF VIEWS: One view. TECHNIQUE: Single frontal radiographic view of the chest acquired. RADIATION DOSE: NA LIMITATIONS: None. FINDINGS: LUNGS AND PLEURA: No opacities, masses or pneumothorax. No pleural effusion. MEDIASTINUM AND HILAR STRUCTURES: No masses. Contour normal. HEART AND VASCULAR STRUCTURES: Heart normal in size. Normal vasculature. BONES: No acute findings. HARDWARE: None in the chest. OTHER: No other significant finding. IMPRESSION: NO ACUTE RADIOGRAPHIC FINDING IN THE CHEST. TECHNICAL DOCUMENTATION: JOB ID: [id number] [employer]- All Rights Reserved Reading location - IP/workstation name: [email or web address]
[2019-06-27 14:09] VITALS: BP 152/93
== END 2019-06-27 14:11 | disposition home or self-care (01) ==
LOC: ER 09:42
DX: R51 Headache (principal); R07.89 Other chest pain; R05 Cough; I10 Essential (primary) hypertension; J44.9 Chronic obstructive pulmonary disease, unspecified; Z87.891 Personal history of nicotine dependence; Z86.69 Personal history of other diseases of the nervous system and sense organs
CPT/HCPCS: 93005; 99284; 96361; 96374; 96375; 36415; 85025; 80053; 84484; 71045; 93010; J1200; J1885; J0780; J7120

== ENCOUNTER 2019-09-16 18:32 | Emergency (ER) | payer SELFPAY ==
--- NOTE | 2019-09-16 19:21 | ER Document Report ---
ED Medical Screen (RME) - General Chief Complaint: Shoulder Pain Stated Complaint: NECK AND LEFT SHOULDER PAIN Time Seen by Provider: 09/16/19 19:12 TRAVEL OUTSIDE OF THE [place] IN LAST 30 DAYS: No - HPI Notes: 09/16/19 19:17 Patient is a 59-year-old female with no significant past medical history states she has not been to the doctor often who presents complaining of chronic left trapezius muscle pain that is been present for the past 4 to 5 months. Patient states that she started developing a rash to her upper arm and forearm over the past 1 to 2 days that is spread pretty quickly. This rash is not painful and it does not bother her at all. No fever, chest pain, shortness of breath. I have treated and performed a rapid initial assessment of this patient. A comprehensive ED assessment and evaluation of the patient, analysis of test results and completion of medical decision making process will be conducted by additional ED providers. PHYSICAL EXAMINATION: GENERAL: Well-appearing, well-nourished and in no acute distress. A&Ox4. Answers questions appropriately. Left arm: There is palpable purpura appearing lesions to the posterior forearm as well as the upper arm. Nontender to palpation. - Related Data Allergies/Adverse Reactions: strawberry [[place]] Allergy (Verified 09/27/17 10:35) Past Medical History - Past Medical History Cardiac Medical History: Reports: Hx Hypercholesterolemia, Hx Hypertension - On no medications for any medical problems at this time. Pulmonary Medical History: Reports: Hx COPD Neurological Medical History: Reports: Hx Migraine Endocrine Medical History: Denies: Hx Diabetes Mellitus Type 1, Hx Diabetes Mellitus Type 2 Renal/ Medical History: Reports: Hx Ovarian Cysts. Denies: Hx Peritoneal Dialysis Musculoskeltal Medical History: Reports Hx Arthritis Psychiatric Medical History: Reports: Hx Depression Traumatic Medical History: Reports: Hx Fractures - Fingers and toes Past Surgical History: Reports: Hx Orthopedic Surgery - "neck surgery", Hx Tubal Ligation - Immunizations Immunizations up to date: Yes Hx Diphtheria, Pertussis, Tetanus Vaccination: No Physical Exam - Vital signs Vitals: Temp Pulse Resp BP Pulse Ox 97.8 F 73 18 155/89 H 80 L 09/16/19 18:51 09/16/19 18:51 09/16/19 18:51 09/16/19 18:51 09/16/19 18:51 Course - Vital Signs Vital signs: Temp Pulse Resp BP Pulse Ox 97.8 F 73 18 155/89 H 95 09/16/19 18:51 09/16/19 18:51 09/16/19 18:51 09/16/19 18:51 09/16/19 19:09
[2019-09-16 20:13] LABS: ABSOLUTE EOSINOPHILS # (AUTO) 0.3 10^3/uL (0.0-0.6); ABSOLUTE LYMPHOCYTES (AUTO) 3.2 10^3/uL (0.5-4.7); ABSOLUTE MONOCYTES (AUTO) 0.5 10^3/uL (0.1-1.4); ABSOLUTE NEUT (AUTO) 4.2 10^3/uL (1.7-8.2); BASOPHILS % (AUTO) 0.6 % (0-2); EOSINOPHILS % (AUTO) 3.2 % (0-6); HEMATOCRIT 43.5 % (36.0-47.0); HEMOGLOBIN 15.5 g/dL (12.0-15.5); LYMPHOCYTES % (AUTO) 38.6 % (13-45); MEAN CORPUSCULAR HEMOGLOBIN 32.4 pg (27.0-33.4); MEAN CORPUSCULAR HGB CONC 35.7 g/dL (32.0-36.0); MEAN CORPUSCULAR VOLUME 91 fl (80-97); MONOCYTES % (AUTO) 6.5 % (3-13); PLATELET COUNT 215 10^3/uL (150-450); RED BLOOD COUNT 4.79 10^6/uL (3.72-5.28); SEGMENTED NEUTROPHILS % (AUTO) 51.1 % (42-78); TOTAL CELLS COUNTED % (AUTO) 100 %; WHITE BLOOD COUNT 8.2 10^3/uL (4.0-10.5)
[2019-09-16 20:26] LABS: INTERNATIONAL RATION (INR) 0.89; PROTHROMBIN TIME 12.1 SEC (11.4-15.4)
[2019-09-16 20:27] LABS: PARTIAL THROMBOPLASTIN TIME 34.6 SEC (23.5-35.8)
[2019-09-16 20:36] LABS: ALKALINE PHOSPHATASE 63 U/L (38-126); ANION GAP 8 (5-19); ASPARTATE AMINO TRANSFERASE 27 U/L (14-36); BILIRUBIN,DIRECT 0.3 mg/dL (0.0-0.4); BILIRUBIN,TOTAL 0.5 mg/dL (0.2-1.3); BLOOD UREA NITROGEN 14 mg/dL (7-20); CALCIUM 9.5 mg/dL (8.4-10.2); CARBON DIOXIDE 26 mmol/L (22-30); CHLORIDE 103 mmol/L (98-107); GLUCOSE 139 mg/dL (75-110); POTASSIUM 3.8 mmol/L (3.6-5.0); TOTAL PROTEIN 6.9 g/dL (6.3-8.2)
[2019-09-16 20:37] LABS: C-REACTIVE PROTEIN < 5.0 mg/L (<10.0)
[2019-09-16 20:56] LABS: ERYTHROCYTE SEDIMENTATION RATE 15 mm/hr (0-30)
--- NOTE | 2019-09-16 22:02 | ER Document Report ---
ED General - General Chief Complaint: Shoulder Pain Stated Complaint: NECK AND LEFT SHOULDER PAIN Time Seen by Provider: 09/16/19 19:12 Mode of Arrival: Ambulatory Information source: Patient TRAVEL OUTSIDE OF THE [place] IN LAST 30 DAYS: No - HPI Onset: Just prior to arrival - Left shoulder left lateral neck and superior scapula painfull symptoms have been present for more than 2 years but worse over the last 24 hours Severity: Moderate Pain Level: 3 Associated symptoms: None Exacerbated by: Denies Similar symptoms previously: Yes Recently seen / treated by doctor: No - Patient does not like going to the doctors there for her copd htn - Related Data Allergies/Adverse Reactions: strawberry [[place]] Allergy (Verified 09/27/17 10:35) Past Medical History - General Information source: Patient - Social History Smoking Status: Unknown if Ever Smoked Cigarette use (# per day): Yes Chew tobacco use (# tins/day): No Smoking Education Provided: Yes Frequency of alcohol use: None Family History: Reviewed & Not Pertinent Patient has suicidal ideation: No Patient has homicidal ideation: No - Past Medical History Cardiac Medical History: Reports: Hx Hypercholesterolemia, Hx Hypertension - On no medications for any medical problems at this time. Pulmonary Medical History: Reports: Hx COPD Neurological Medical History: Reports: Hx Migraine Endocrine Medical History: Denies: Hx Diabetes Mellitus Type 1, Hx Diabetes Mellitus Type 2 Renal/ Medical History: Reports: Hx Ovarian Cysts. Denies: Hx Peritoneal Dialysis Musculoskeletal Medical History: Reports Hx Arthritis Psychiatric Medical History: Reports: Hx Depression Traumatic Medical History: Reports: Hx Fractures - Fingers and toes Past Surgical History: Reports: Hx Orthopedic Surgery - "neck surgery", Hx Tubal Ligation - Immunizations Immunizations up to date: Yes Hx Diphtheria, Pertussis, Tetanus Vaccination: No Physical Exam - Vital signs Vitals: Temp Pulse Resp BP Pulse Ox 97.8 F 73 18 155/89 H 80 L 09/16/19 18:51 09/16/19 18:51 09/16/19 18:51 09/16/19 18:51 09/16/19 18:51 Course - Vital Signs Vital signs: Temp Pulse Resp BP Pulse Ox 97.8 F 73 18 155/89 H 95 09/16/19 18:51 09/16/19 18:51 09/16/19 18:51 09/16/19 18:51 09/16/19 19:09 - Laboratory Result Diagrams: 09/16/19 19:50 09/16/19 19:50 Laboratory results interpreted by me: 09/16/19 19:50 Glucose 139 H Discharge - Discharge Clinical Impression: Paresthesia, Tobacco abuse, COPD (chronic obstructive pulmonary disease), Cervical neuralgia
--- NOTE | 2019-09-16 22:09 | ER Document Report ---
ED General - General Chief Complaint: Shoulder Pain Stated Complaint: NECK AND LEFT SHOULDER PAIN Time Seen by Provider: 09/16/19 19:12 Mode of Arrival: Ambulatory Notes: Patient also reports she smokes cigarettes and has polycythemia vera as well as COPD uterine fibroids and hypertension. She is on no medications for these because she does not have a personal doctor. TRAVEL OUTSIDE OF THE [place] IN LAST 30 DAYS: No - HPI Onset: Other - X2 years but worse over the last several days Onset/Duration: Gradual - Patient reports she had a ligament strain around 2 years ago Quality of pain: Achy Severity: Moderate Pain Level: 3 Associated symptoms: Other - Paresthesias of left upper extremity like bugs crawling over her left arm. And also left lateral trapezial muscle left posterior shoulder left superior scapular pain like stabbing sensation. Exacerbated by: Movement Relieved by: Denies Similar symptoms previously: Yes Recently seen / treated by doctor: No - Patient does not like being seen by physicians - Related Data Allergies/Adverse Reactions: strawberry [[place]] Allergy (Verified 09/27/17 10:35) Past Medical History - General Information source: Patient - Social History Smoking Status: Current Every Day Smoker Cigarette use (# per day): Yes Chew tobacco use (# tins/day): No Frequency of alcohol use: None Family History: Reviewed & Not Pertinent Patient has suicidal ideation: No Patient has homicidal ideation: No - Past Medical History Cardiac Medical History: Reports: Hx Hypercholesterolemia, Hx Hypertension - On no medications for any medical problems at this time. Pulmonary Medical History: Reports: Hx COPD Neurological Medical History: Reports: Hx Migraine Endocrine Medical History: Denies: Hx Diabetes Mellitus Type 1, Hx Diabetes Mellitus Type 2 Renal/ Medical History: Reports: Hx Ovarian Cysts. Denies: Hx Peritoneal Dialysis Musculoskeletal Medical History: Reports Hx Arthritis Psychiatric Medical History: Reports: Hx Depression Traumatic Medical History: Reports: Hx Fractures - Fingers and toes Past Surgical History: Reports: Hx Orthopedic Surgery - "neck surgery", Hx Tubal Ligation - Immunizations Immunizations up to date: Yes Hx Diphtheria, Pertussis, Tetanus Vaccination: No Review of Systems - Review of Systems Constitutional: No symptoms reported EENT: No symptoms reported Cardiovascular: No symptoms reported Respiratory: No symptoms reported Gastrointestinal: No symptoms reported Genitourinary: No symptoms reported Female Genitourinary: No symptoms reported Musculoskeletal: Back pain - Around left superior scapula area; left lateral trapezial muscle left of neck Skin: Dryness - To left arm with xerotic hyperpigmented skin Hematologic/Lymphatic: Other - Hx of polycythemia vera Physical Exam - Vital signs Vitals: Temp Pulse Resp BP Pulse Ox 97.8 F 73 18 155/89 H 80 L 09/16/19 18:51 09/16/19 18:51 09/16/19 18:51 09/16/19 18:51 09/16/19 18:51 Interpretation: Normal - General General appearance: Appears well, Anxious In distress: None - HEENT Head: Normocephalic Eyes: Normal Conjunctiva: Normal Cornea: Normal Extraocular movements intact: Yes Eyelashes: Normal Pupils: PERRL Ears: Normal Sinus: Normal Nasal: Normal Mouth/Lips: Normal, Other - Tubal teeth with edentulous chair; 3 teeth are exist ing in her mouth Mucous membranes: Normal Pharynx: Normal Neck: Other - Tenderness palpation to left lateral neck musculature trapezial on palpation including supraspinatus and left lateral deltoid to range of motion of these areas. - Respiratory Respiratory status: No respiratory distress Chest status: Nontender Breath sounds: Normal Chest palpation: Normal - Cardiovascular Rhythm: Regular Heart sounds: Normal auscultation Murmur: No Friction rub: No Guille's crunch: No - Abdominal Inspection: Normal Distension: No distension Bowel sounds: Normal Tenderness: Nontender - Back Back: Tender - As per HPI; and neck exam findings. - Extremities General upper extremity: Normal ROM, Other - Abnormal coloration to left upper extremity with xerotic skin as per HPI General lower extremity: Normal inspection Shoulder: Tender - Tenderness to left lateral and posterior shoulder deltoid region Arm: Other - Paresthesias left arm and to forearm with "bug crawling" sensation Forearm: Other Wrist: Normal Hand: Normal Hip: Normal Course - Vital Signs Vital signs: Temp Pulse Resp BP Pulse Ox 97.8 F 73 18 155/89 H 95 09/16/19 18:51 09/16/19 18:51 09/16/19 18:51 09/16/19 18:51 09/16/19 19:09 - Laboratory Result Diagrams: 09/16/19 19:50 09/16/19 19:50 Laboratory results interpreted by me: 09/16/19 19:50 Glucose 139 H - Diagnostic Test Radiology reviewed: Reports reviewed Critical Care Note - Critical Care Note Total time excluding time spent on procedures (mins): 90 Comments: Discussed findings with patient Discharge - Discharge Clinical Impression: Paresthesia, Tobacco abuse, COPD (chronic obstructive pulmonary disease), Cervical neuralgia, DJD (degenerative joint disease) of cervical spine, Hypertension Condition: Good Disposition: HOME, SELF-CARE Additional Instructions: Follow-up with neurosurgeon in [place] or [facility]. Avoid bending lifting or twisting take medicines as directed return to ER if symptoms persist or worsen. Avoid moving her left arm or lifting with your left arm. also get a regular medical doctor to check your blood pressure on a daily basis Prescriptions: Dexamethasone [Decadron 4 Mg Tablet] 4 mg PO BID #10 tablet Lisinopril/Hydrochlorothiazide [Lisinopril-Hctz 20-12.5 mg Tab] 1 each PO DAILY #30 tablet Chlorzoxazone [Parafon Forte Dsc 500 Mg Tablet] 500 mg PO BID #20 tablet Forms: Elevated Blood Pressure
[2019-09-16] MEDS ORDERED: KETOROLAC TROMETHAMINE INJ/PF 30 MG/1 ML SDV IV ONE (23:31)
--- NOTE | 2019-09-16 23:31 | RADIOLOGY REPORT (SQ) ---
EXAM DESCRIPTION: XR CHEST 2 VIEWS COMPLETED DATE/TME: 09/16/2019 22:03 CLINICAL HISTORY: 59 years, Female, neck pain COMPARISON: June 27, 2019 NUMBER OF VIEWS: 2 TECHNIQUE: LIMITATIONS: None. FINDINGS: Cardiomediastinal silhouette is top normal but stable. Chronic parenchymal lung change. No consolidation or edema. No effusion or pneumothorax. Scoliosis. Osteoarthritis IMPRESSION: No active disease. No adverse change copyright 2010 [employer]- All Rights Reserved
[2019-09-16] MEDS ORDERED: DEXAMETHASONE SOD PHOS INJ 10 MG/1 ML VIAL IV ONE (23:32)
--- NOTE | 2019-09-16 23:36 | RADIOLOGY REPORT (SQ) ---
EXAM DESCRIPTION: CT CERVICAL SPINE WITHOUT IV CONTRAST COMPLETED DATE/TME: 09/16/2019 22:03 CLINICAL HISTORY: 59 years, Female, neck pain.denies recent injury/trauma COMPARISON: None. TECHNIQUE: Noncontrast CT of the cervical spine was performed. Coronal and sagittal reformations were created. Images stored on PACS. All CT scanners at this facility use dose modulation, iterative reconstruction, and/or weight based dosing when appropriate to reduce radiation dose to as low as reasonably achievable (ALARA). [facility]: Dose Right [facility]: CareDose [facility]: Dose Right [facility]: Teradose 4D [facility]: [employer] LIMITATIONS: None. FINDINGS: Limited evaluation of the brain parenchyma reveals a focus of hypodensity located about the left cerebellar hemisphere on image 10 of series 3, most likely corresponding to a remote lacunar infarct. Occipital condyles are normal. Lateral masses of C1 and C2 align properly. Base and tip of the dens are intact. Craniocervical alignment is maintained. Moderate to severe multilevel cervical spondylosis is noted, designated primarily by multilevel intervertebral disc space narrowing, hypertrophic endplate spurring, and facet hypertrophy. In detail, these findings are as follows: At C2-C3, there is mild intervertebral space narrowing with superimposed right uncovertebral joint hypertrophy and severe right facet hypertrophy. No resultant foraminal stenosis is noted. At C3-C4, there is mild disc bulge with superimposed severe right facet arthropathy and right uncovertebral joint hypertrophy contributing to moderate right neural foraminal stenosis. Left neural foramen is patent. At C4-C5, there is moderate intervertebral space narrowing/mild disc bulge with superimposed bilateral uncovertebral joint and left greater than right facet hypertrophy, contributing to severe left neural foraminal stenosis. The right neural foramen is patent. There are postsurgical changes of right laminectomy at this level. At C5-C6, there is severe intervertebral disc space narrowing with disc bulge as well as bilateral uncovertebral joint and right facet hypertrophy contributing to moderate right and mild left neural foraminal stenosis. Superimposed hypertrophic endplate spurring is also evident. There are also postsurgical changes of right laminectomy at this level. However, there is still likely some degree of central canal stenosis, with the AP diameter of the canal measuring at least 5 to 6 mm in AP diameter. At C6-C7, there is severe and revealed a space narrowing and hypertrophic endplate spurring with superimposed disc bulge as well as bilateral uncovertebral joint hypertrophy contributing to moderate left and [id number] right neural foraminal stenosis. In addition, there is some degree of central canal stenosis, with the AP diameter canal measuring at least 6 mm. C7-T1 appears normal. Limited evaluation of the lung apices reveals clear lungs. Paravertebral soft tissues show no suspicious findings. IMPRESSION: Moderate to severe multilevel cervical spondylosis, as above described. No underlying acute fracture or malalignment. TECHNICAL DOCUMENTATION: Quality ID # [id number]: Final reports with documentation of one or more dose reduction techniques (e.g., Automated exposure control, adjustment of the mA and/or kV according to patient size, use of iterative reconstruction technique) copyright 2010 [employer]- All Rights Reserved
[2019-09-16] MEDS ORDERED: KETOROLAC TROMETHAMINE 60 MG/2 ML SDV IM ONE (23:39)
[2019-09-16] MEDS ORDERED: DEXAMETHASONE SOD PHOS INJ 10 MG/1 ML VIAL IM ONE (23:40)
[2019-09-16] MEDS ORDERED: HYDROCODONE/ACETAMINOPHEN 5-325 MG (6 TAB/ER DISP) PO PRN (23:40)
[2019-09-17 01:18] VITALS: BP 150/89
== END 2019-09-17 01:18 | disposition home or self-care (01) ==
LOC: ER 18:32
DX: M47.9 Spondylosis, unspecified (principal); G58.8 Other specified mononeuropathies; J44.9 Chronic obstructive pulmonary disease, unspecified; I10 Essential (primary) hypertension; R20.2 Paresthesia of skin; M79.18 Myalgia, other site; M25.512 Pain in left shoulder; M89.8X1 Other specified disorders of bone, shoulder; F17.210 Nicotine dependence, cigarettes, uncomplicated; Z91.018 Allergy to other foods
CPT/HCPCS: 99285; 96372; 36415; 87040; 85025; 85652; 85610; 85730; 86140; 80053; 71046; 72125; J1885; J1100

== ENCOUNTER → 2019-10-10 | Outpatient (CLI) | payer SELFPAY ==
[2019-10-10 08:59] LABS: ABSOLUTE EOSINOPHILS # (AUTO) 0.1 10^3/uL (0.0-0.6); ABSOLUTE LYMPHOCYTES (AUTO) 2.1 10^3/uL (0.5-4.7); ABSOLUTE MONOCYTES (AUTO) 0.5 10^3/uL (0.1-1.4); ABSOLUTE NEUT (AUTO) 3.4 10^3/uL (1.7-8.2); BASOPHILS % (AUTO) 0.6 % (0-2); HEMATOCRIT 43.4 % (36.0-47.0); HEMOGLOBIN 15.5 g/dL (12.0-15.5); LYMPHOCYTES % (AUTO) 34.8 % (13-45); MEAN CORPUSCULAR HEMOGLOBIN 32.3 pg (27.0-33.4); MEAN CORPUSCULAR HGB CONC 35.8 g/dL (32.0-36.0); MEAN CORPUSCULAR VOLUME 90 fl (80-97); MONOCYTES % (AUTO) 7.6 % (3-13); PLATELET COUNT 210 10^3/uL (150-450); TOTAL CELLS COUNTED % (AUTO) 100 %; WHITE BLOOD COUNT 6.1 10^3/uL (4.0-10.5)
[2019-10-10 09:18] LABS: ALBUMIN 3.9 g/dL (3.5-5.0); ALKALINE PHOSPHATASE 71 U/L (38-126); ANION GAP 8 (5-19); ASPARTATE AMINO TRANSFERASE 23 U/L (14-36); BILIRUBIN,DIRECT 0.1 mg/dL (0.0-0.4); BILIRUBIN,TOTAL 0.6 mg/dL (0.2-1.3); BLOOD UREA NITROGEN 15 mg/dL (7-20); CALCIUM 9.3 mg/dL (8.4-10.2); CARBON DIOXIDE 26 mmol/L (22-30); CHLORIDE 100 mmol/L (98-107); CHOLESTEROL 235.51 mg/dL (0-200); GLUCOSE 300 mg/dL (75-110); POTASSIUM 4.3 mmol/L (3.6-5.0); TOTAL PROTEIN 6.4 g/dL (6.3-8.2); TRIGLYCERIDES 280 mg/dL (<150)
[2019-10-10 09:29] LABS: DIRECT LDL 174 mg/dL (<100)
== END ==
LOC: LAB 08:35
PROVIDERS: ATTEND Internal Medicine
DX: R73.9 Hyperglycemia, unspecified (principal)
CPT/HCPCS: 36415; 80053; 80061; 83036; 84443; 85025

== ENCOUNTER 2020-02-14 17:07 | Emergency (ER) | payer SELFPAY ==
[2020-02-14 17:13] VITALS: BP 186/84
--- NOTE | 2020-02-14 18:21 | ER Document Report ---
ED Medical Screen (RME) - General Chief Complaint: Shoulder Pain Stated Complaint: LEFT SHOULDER, BACK PAIN Time Seen by Provider: 02/14/20 18:12 Notes: Patient is a 60-year-old female who presents to the emergency department with a chief complaint of left shoulder pain. Patient has a history of cervical spondylosis that was diagnosed in August. Patient has been taking 800 mg ibuprofen, but still continues to have pain. Patient also has another complaint of hematuria. This started today. She also has a small amount of lower abdominal pain. Exam: Tender mid lower abdomen and left posterior shoulder. I have greeted and performed a rapid initial assessment of this patient. A comprehensive ED assessment and evaluation of the patient, analysis of test results and completion of medical decision making process will be conducted by an additional ED providers. TRAVEL OUTSIDE OF THE [place] IN LAST 30 DAYS: No - Related Data Allergies/Adverse Reactions: strawberry [[place]] Allergy (Verified 02/14/20 18:17) Past Medical History - Social History Chew tobacco use (# tins/day): No Frequency of alcohol use: None Drug Abuse: None - Past Medical History Cardiac Medical History: Reports: Hx Hypercholesterolemia, Hx Hypertension - On no medications for any medical problems at this time. Pulmonary Medical History: Reports: Hx COPD Neurological Medical History: Reports: Hx Migraine Endocrine Medical History: Reports: Hx Diabetes Mellitus Type 2. Denies: Hx Diabetes Mellitus Type 1 Renal/ Medical History: Reports: Hx Ovarian Cysts. Denies: Hx Peritoneal Dialysis Musculoskeltal Medical History: Reports Hx Arthritis Psychiatric Medical History: Reports: Hx Depression Traumatic Medical History: Reports: Hx Fractures - Fingers and toes Past Surgical History: Reports: Hx Orthopedic Surgery - "neck surgery", Hx Tubal Ligation - Immunizations Immunizations up to date: Yes Hx Diphtheria, Pertussis, Tetanus Vaccination: No Physical Exam - Vital signs Vitals: Temp Pulse Resp BP Pulse Ox 97.7 F 89 16 186/84 H 95 02/14/20 17:11 02/14/20 17:11 02/14/20 17:11 02/14/20 17:11 02/14/20 17:11 Course - Vital Signs Vital signs: Temp Pulse Resp BP Pulse Ox 97.7 F 89 16 186/84 H 95 02/14/20 18:14 02/14/20 17:11 02/14/20 17:11 02/14/20 17:11 02/14/20 17:11
[2020-02-14 19:13] LABS: APPEARANCE,URINE SLIGHTLY-CLOUDY; BILIRUBIN,URINE NEGATIVE (NEGATIVE); COLOR,URINE YELLOW; GLUCOSE, URINE NEGATIVE (NEGATIVE); KETONES,URINE NEGATIVE (NEGATIVE); PROTEIN,URINE 30 mg/dL (NEGATIVE); URINE SPECIFIC GRAVITY 1.025
[2020-02-14 19:17] LABS: ABSOLUTE EOSINOPHILS # (AUTO) 0.3 10^3/uL (0.0-0.6); ABSOLUTE LYMPHOCYTES (AUTO) 2.9 10^3/uL (0.5-4.7); ABSOLUTE MONOCYTES (AUTO) 0.6 10^3/uL (0.1-1.4); ABSOLUTE NEUT (AUTO) 4.9 10^3/uL (1.7-8.2); BASOPHILS % (AUTO) 0.4 % (0-2); EOSINOPHILS % (AUTO) 3.8 % (0-6); HEMATOCRIT 39.3 % (36.0-47.0); LYMPHOCYTES % (AUTO) 32.7 % (13-45); MEAN CORPUSCULAR HEMOGLOBIN 32.7 pg (27.0-33.4); MEAN CORPUSCULAR HGB CONC 35.5 g/dL (32.0-36.0); MEAN CORPUSCULAR VOLUME 92 fl (80-97); MONOCYTES % (AUTO) 7.2 % (3-13); PLATELET COUNT 260 10^3/uL (150-450); RED BLOOD COUNT 4.27 10^6/uL (3.72-5.28); RED CELL DISTRIBUTION WIDTH 12.9 % (11.5-14.0); SEGMENTED NEUTROPHILS % (AUTO) 55.9 % (42-78); TOTAL CELLS COUNTED % (AUTO) 100 %; WHITE BLOOD COUNT 8.8 10^3/uL (4.0-10.5)
[2020-02-14 19:33] LABS: ALKALINE PHOSPHATASE 46 U/L (38-126); ANION GAP 6 (5-19); ASPARTATE AMINO TRANSFERASE 21 U/L (14-36); BILIRUBIN,TOTAL 0.4 mg/dL (0.2-1.3); BLOOD UREA NITROGEN 24 mg/dL (7-20); CALCIUM 10.8 mg/dL (8.4-10.2); CARBON DIOXIDE 24 mmol/L (22-30); CHLORIDE 108 mmol/L (98-107); GLUCOSE 135 mg/dL (75-110); POTASSIUM 4.1 mmol/L (3.6-5.0); TOTAL PROTEIN 6.5 g/dL (6.3-8.2)
== END 2020-02-15 04:50 | disposition left against medical advice (07) ==
LOC: ER 17:07
DX: M25.512 Pain in left shoulder (principal); R10.30 Lower abdominal pain, unspecified; R10.819 Abdominal tenderness, unspecified site; I10 Essential (primary) hypertension; J44.9 Chronic obstructive pulmonary disease, unspecified; M47.812 Spondylosis without myelopathy or radiculopathy, cervical region; Z79.1 Long term (current) use of non-steroidal anti-inflammatories (NSAID); Z91.018 Allergy to other foods; Z53.20 Procedure and treatment not carried out because of patient's decision for unspecified reasons
CPT/HCPCS: 36415; 80053; 81001; 85025; 99281

== ENCOUNTER → 2020-05-20 | Outpatient (CLI) | payer OTHER ==
[2020-05-20 08:57] LABS: ANION GAP 8 (5-19); BLOOD UREA NITROGEN 29 mg/dL (7-20); CARBON DIOXIDE 24 mmol/L (22-30); CHLORIDE 107 mmol/L (98-107); GLUCOSE 140 mg/dL (75-110); PHOSPHORUS 3.8 mg/dL (2.5-4.5); POTASSIUM 4.8 mmol/L (3.6-5.0)
== END ==
LOC: CCC 07:23
PROVIDERS: ATTEND Internal Medicine
DX: E11.22 Type 2 diabetes mellitus with diabetic chronic kidney disease (principal); N18.3 Chronic kidney disease, stage 3 (moderate); E83.52 Hypercalcemia
CPT/HCPCS: 36415; 80048; 83036; 83735; 84100

== ENCOUNTER → 2020-09-22 | Outpatient (CLI) | payer OTHER ==
[2020-09-22 09:19] LABS: ABSOLUTE EOSINOPHILS # (AUTO) 0.2 10^3/uL (0.0-0.6); ABSOLUTE LYMPHOCYTES (AUTO) 2.8 10^3/uL (0.5-4.7); ABSOLUTE MONOCYTES (AUTO) 0.6 10^3/uL (0.1-1.4); ABSOLUTE NEUT (AUTO) 5.2 10^3/uL (1.7-8.2); BASOPHILS % (AUTO) 0.3 % (0-2); EOSINOPHILS % (AUTO) 2.6 % (0-6); HEMATOCRIT 41.5 % (36.0-47.0); HEMOGLOBIN 14.8 g/dL (12.0-15.5); LYMPHOCYTES % (AUTO) 31.6 % (13-45); MEAN CORPUSCULAR HEMOGLOBIN 32.7 pg (27.0-33.4); MEAN CORPUSCULAR HGB CONC 35.6 g/dL (32.0-36.0); MEAN CORPUSCULAR VOLUME 92 fl (80-97); MONOCYTES % (AUTO) 6.7 % (3-13); PLATELET COUNT 254 10^3/uL (150-450); RED BLOOD COUNT 4.53 10^6/uL (3.72-5.28); RED CELL DISTRIBUTION WIDTH 12.3 % (11.5-14.0); SEGMENTED NEUTROPHILS % (AUTO) 58.8 % (42-78); TOTAL CELLS COUNTED % (AUTO) 100 %; WHITE BLOOD COUNT 8.8 10^3/uL (4.0-10.5)
[2020-09-22 09:36] LABS: APPEARANCE,URINE CLEAR; BILIRUBIN,URINE NEGATIVE (NEGATIVE); COLOR,URINE YELLOW; GLUCOSE, URINE NEGATIVE (NEGATIVE); KETONES,URINE NEGATIVE (NEGATIVE); LEUKOCYTE ESTERASE,URINE NEGATIVE (NEGATIVE); NITRITE,URINE NEGATIVE (NEGATIVE); PROTEIN,URINE NEGATIVE (NEGATIVE); URINE SPECIFIC GRAVITY 1.014; UROBILINOGEN,URINE NEGATIVE mg/dL (<2.0)
[2020-09-22 09:46] LABS: ALBUMIN 4.3 g/dL (3.5-5.0); ALKALINE PHOSPHATASE 59 U/L (38-126); ANION GAP 10 (5-19); ASPARTATE AMINO TRANSFERASE 23 U/L (14-36); BILIRUBIN,DIRECT 0.3 mg/dL (0.0-0.4); BILIRUBIN,TOTAL 0.6 mg/dL (0.2-1.3); BLOOD UREA NITROGEN 22 mg/dL (7-20); CALCIUM 9.8 mg/dL (8.4-10.2); CARBON DIOXIDE 24 mmol/L (22-30); CHLORIDE 103 mmol/L (98-107); CHOLESTEROL 163.51 mg/dL (0-200); GLUCOSE 113 mg/dL (75-110); POTASSIUM 4.1 mmol/L (3.6-5.0); TOTAL PROTEIN 6.9 g/dL (6.3-8.2); TRIGLYCERIDES 193 mg/dL (<150)
[2020-09-22 09:56] LABS: DIRECT LDL 93 mg/dL (<100)
[2020-09-22 09:58] LABS: VLDL CHOLESTEROL 38.6 mg/dL (10-31)
== END ==
LOC: CCC 08:36
PROVIDERS: ATTEND Internal Medicine
DX: I12.9 Hypertensive chronic kidney disease with stage 1 through stage 4 chronic kidney disease, or unspecified chronic kidney disease (principal); N18.9 Chronic kidney disease, unspecified; E11.22 Type 2 diabetes mellitus with diabetic chronic kidney disease; R31.0 Gross hematuria
CPT/HCPCS: 36415; 80053; 80061; 81001; 83036; 84443; 85025; 87086